=== PATIENT | female | born 1965 | race Two or more races ===

== ENCOUNTER → 2024-02-27 | Outpatient (CLI) | payer OTHER, SELFPAY ==
--- NOTE | 2024-02-27 14:15 | XR_ITS ---
Examination: Breast ultrasound complete, bilateral Date and time of exam: February 27, 2024 1418 hours INDICATIONS: Mammogram February 14, 2000 2420 11 m mass inner left breast Technique: Real-time grayscale ultrasonographic imaging bilateral breasts, including all 4 quadrants as well as nipple retroareolar and axillary regions. Findings: Sonographic images right breast No cystic or solid mass Sonographic images left breast 9:00 irregular mass 2.3 x 1.6 x 2.6 cm IMPRESSION: BI-RADS Category 4: Suspicious for malignancy Suspicious mass 9:00 position left breast, biopsy is needed to exclude breast carcinoma This mass is amenable to ultrasound-guided breast biopsy for diagnosis
== END | disposition home or self-care (01) ==
LOC: CDIM 13:58
PROVIDERS: PCP Family Medicine; Referring Provider Specialist; Visit Provider Specialist
DX: N63.25 Unspecified lump in the left breast, overlapping quadrants (principal)
CPT/HCPCS: 76641

== ENCOUNTER → 2024-05-07 | Outpatient (CLI) | payer OTHER, SELFPAY ==
[2024-05-06 09:02] LABS: Basophils % (Auto) 0 % (0-2.5); Eosinophils # (Auto) 0.2 Thou/mm3 (0.0-0.5); Eosinophils % (Auto) 2 % (0-10); Hematocrit 40.1 % (36.0-46.0); Immature Granulocytes % (Auto) 0 % (0-0); Immature Granulocytes Auto 0.03 Thou/mm3 (0.00-0.00); Lymphocytes # (Auto) 2.3 Thou/mm3 (1.0-4.8); Lymphocytes % (Auto) 23 % (10-50); Mean Corpuscular HGB Conc 32.4 g/dl (31.0-37.0); Mean Corpuscular Hemoglobin 29.9 pg (25.0-35.0); Mean Corpuscular Volume 92 fL (80-100); Monocytes # (Auto) 0.7 Thou/mm3 (0.0-0.8); Monocytes % (Auto) 7 % (0-12); Neutrophils # (Auto) 6.9 Thou/mm3 (1.8-7.7); Neutrophils % (Auto) 68 % (37-80); Nucleated Red Blood Cell % 0 /100 WBC (0); Platelet Count 298 Thou/mm3 (140-440); Red Blood Count 4.35 Miln/mm3 (4.00-5.20); White Blood Count 10.2 Thou/mm3 (3.6-11.0)
[2024-05-06 09:07] LABS: Partial Thromboplastin Time 31.1 Seconds (22.0-36.0)
--- NOTE | 2024-05-07 10:30 | XR_ITS ---
Examinations: Ultrasound-guided percutaneous breast biopsy, left breast 9:00 nodule Left breast sonography limited. Exam date and time: May 07, 2023 1105 hours INDICATIONS: Left breast sonogram February 27, 2024 BI-RADS 4 suspicious mass 9:00 position left breast. Informed consent provided. Technique: A timeout was completed verifying correct patient, procedure, site, positioning, and special equipment if applicable Informed consent provided. The patient was placed in a supine position for the breast biopsy. Sonographic images of the breast were performed for localization of the suspicious nodule The patient's breast was prepped and draped in sterile fashion. Maximum sterile barrier technique, hand hygiene, ultrasound sterile technique 1% lidocaine was used to anesthetize the skin and breast adjacent to the suspicious nodule. Utilizing ultrasonographic guidance, 8 core biopsies were obtained of the suspicious nodule utilizing an 18-gauge BioPince needle. The specimens appears satisfactory. US guided breast biopsy marker placement. Estimated blood loss 3 cc. The patient tolerated the procedure well and there were no complications. Impression: Successful ultrasound-guided percutaneous breast biopsy, 9:00 nodule. Ultrasound guided breast biopsy marker placement.
== END | disposition home or self-care (01) ==
LOC: SDIM 10:10 → SIRX 10:59
PROVIDERS: Radiology Diagnostic Radiology; Referring Provider Specialist; Visit Provider Specialist
DX: C50.812 Malignant neoplasm of overlapping sites of left female breast (principal); Z01.812 Encounter for preprocedural laboratory examination
CPT/HCPCS: 19083; 36415; 85025; 85610; 85730; A4648

== ENCOUNTER → 2024-05-28 | Outpatient (CLI) | payer OTHER, SELFPAY ==
--- NOTE | 2024-05-28 13:30 | ECHO_ITS ---
Transthoracic Echo Report Ht (in): 65 Wt (lb): 206 Exam Location: Echo Lab Status: Outpatient Residential Roofer: ZULMA Hansen^^^^ Indications: Procedure Performed: BP: 114 / 69 HR: 70 Rhythm: Sinus Technical Quality: Good MEASUREMENTS (Male / Female) Normal Values 2D ECHO LV Diastolic Diameter PLAX 4.7 cm 4.2 - 5.9 / 3.9 - 5.3 cm LV Systolic Diameter PLAX 3.0 cm IVS Diastolic Thickness 0.8 cm 0.6 - 1.0 / 0.6 - 0.9 cm LVPW Diastolic Thickness 0.8 cm 0.6 - 1.0 / 0.6 - 0.9 cm LV Relative Wall Thickness 0.3 LVOT Diameter 1.8 cm Aortic Root Diameter 3.2 cm LA Systolic Diameter LX 2.9 cm 3.0 - 4.0 / 2.7 - 3.8 cm LV Ejection Fraction MOD 4C 63.3 % LV Cardiac Index MOD 4C 2185.2 cm?/min?m? LV Ejection Fraction 4C AL 64.2 % LV Cardiac Index 4C AL 2308.0 cm?/min?m? LA Volume Index 22.7 cm?/m? 16 - 28 cm?/m? Ascending Aorta Diameter 3.6 cm DOPPLER AV Peak Velocity 123.0 cm/s AV Peak Gradient 6.1 mmHg AV Mean Gradient 4.0 mmHg AV Velocity Time Integral 26.1 cm AI Peak Velocity 266.5 cm/s AI Peak Gradient 28.4 mmHg AI Pressure Half Time 647.0 ms LVOT Peak Velocity 87.6 cm/s LVOT Peak Gradient 3.1 mmHg LVOT Velocity Time Integral 23.5 cm LVOT Cardiac Index 1990.1 cm?/min?m? AV Area Cont Eq vti 2.3 cm? AV Area Cont Eq pk 1.8 cm? MV Area PHT 3.2 cm? MR Peak Velocity 518.0 cm/s MR Peak Gradient 107.3 mmHg Mitral E Point Velocity 62.6 cm/s Mitral A Point Velocity 93.6 cm/s Mitral E to A Ratio 0.7 LV E' Lateral Velocity 9.4 cm/s Mitral E to LV E' Lateral Ratio 6.7 LV E' Septal Velocity 9.0 cm/s Mitral E to LV E' Septal Ratio 6.9 TR Peak Velocity 231.7 cm/s TR Peak Gradient 21.5 mmHg PV Peak Velocity 87.5 cm/s PV Peak Gradient 3.1 mmHg RVOT Peak Velocity 53.9 cm/s FINDINGS Left Ventricle Normal left ventricular size, wall thickness, systolic function with no obvious regional wall motion abnormalities. There is grade I diastolic dysfunction of the left ventricle (impaired relaxation pattern). The left ventricular ejection fraction is normal, estimated at 55-60%. Right Ventricle The right ventricle is normal in size and systolic function. The estimated right ventricular systolic pressure, 30 mmHg. Left Atrium The left atrium is normal by two-dimensional, color flow and Doppler imaging with no structural abnormalities, no thrombus formation present. Right Atrium The right atrium is normal by two-dimensional imaging, color flow and Doppler imaging with no structural abnormalities, no thrombus formation present. Atrial Septum The interatrial septum appears normal with no evidence of a shunt. Aorta The aorta is normal by two-dimensional, color flow and Doppler interrogation. Mitral Valve Mitral annular calcification. Mild mitral regurgitation. Aortic Valve Trace to mild aortic valve regurgitation. Tricuspid Valve There is mild tricuspid valve regurgitation. Pulmonic Valve Trivial pulmonic valve regurgitation. Vessels The pulmonary artery appears normal. The inferior vena cava pulmonary and hepatic veins appear normal. Pericardium The pericardium is normal by two-dimensional imaging. There is no significant pericardial effusion. CONCLUSIONS The transthoracic study is normal by two-dimensional, color flow imaging and Doppler interrogation. Normal left ventricular size and function. Approximate ejection fraction is 60%. Mild mitral and trace tricuspid regurgitation . No wall motion abnormalities seen Radha Villanueva (Electronically Signed) Final Date: 29 May 2024 10:15
== END | disposition home or self-care (01) ==
PROVIDERS: PCP Family Medicine; Referring Provider Surgery; Visit Provider Surgery
DX: I08.1 Rheumatic disorders of both mitral and tricuspid valves (principal); C50.912 Malignant neoplasm of unspecified site of left female breast
CPT/HCPCS: 93306

== ENCOUNTER 2024-06-04 13:01 | Outpatient (RCR) | payer OTHER, SELFPAY ==
--- NOTE | 2024-05-28 10:25 | CTCCONSULT_ITS ---
Patient: JIHAN SOOD : 1965 MR#: [id number] Page 2 of 2 CONSULTATION NOTE DATE OF CONSULTATION: 05/28/2024 NAME: JIHAN SOOD ACCOUNT: [id number] : 1965 AGE: 58 REFERRING PHYSICIAN: Carroll Christensen MD PRIMARY PHYSICIAN: Gamaliel Sparrow MD REASON FOR VISIT: New patient for breast cancer ONCOLOGY HISTORY: DIAGNOSIS: Neoplasm of unspecified behavior of breast [ICD10] D49.3 DATE OF DIAGNOSIS: STAGE/TNM: HER2 positive breast cancer TREATMENT HISTORY: Care?Plan Start?Date Cycle Day Intent Taxotere,?Carboplatin,?Trastuzumab?1 05/28/2024 1 21 Curative?(primary) HISTORY OF PRESENT ILLNESS: 58-year-old female OTHER MEDICAL HISTORY/CONDITIONS: LEFT BREAST CANCER MIGRAINE HEADACHES ANXIETY GASTRITIS OSTEOARTHRITIS RIGHT KNEE BREAST BIOPSY (03/2024) C SECTIONS X2 (1989,1994) CHOLECYSTECTOMY TOTAL KNEE REPLACEMENT RIGHT 2023 FAMILY HISTORY: Father: UNSURE TYPE OF CANCER PROSTATE OR PANCREAS Mother:?OVARIAN?CANCER?DX?90S Sibling: SISTER HAD OVARIAN CANCER DX 55 Children:?DENIES Cancer?History:?LEFT?BREAST?CANCER SOCIAL HISTORY: 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 Tobacco?Use:?NEVER ETOH?Use:?OCCASIONAL?WINE Drug?Note:?DENIES Social History Note:?LIVES WITH CHILDREN AND GRANDSON MICA LAYER HISTORY: Menarche?-?Age:?13 Hormone?Use:?ADMITS?BC?PILLS?IN?PAST :?3 Live?Births:?2 Age?1st?:?24 Gynecological?Note:?LAST MENSES IN 2004, 1 MISCARRIAGE Gynecological?Note?2:?LAST PAP SMEAR LAST YEAR MEDICATIONS: 1. nortriptyline - 25 mg 1 Capsule Daily Medications Last Reconciled by Darline Blackwell MD on 05/28/2024 ALLERGIES: Penicillin V; FISH REVIEW OF SYSTEMS: A complete 14-point review of systems was performed and is negative except as noted in interval history. PHYSICAL EXAMINATION: VITAL SIGNS: Temperature?98.4, B/P?127/82, Height?65?inches, Oxygen?Saturation?95% Weight?206?lbs PAIN: 0 - No pain ECOG Performance Status: 0 - Asymptomatic and fully active GENERAL APPEARANCE: Appears well, in no apparent distress, appropriately interactive. HEENT: Normocephalic, no temporal wasting, normal conjunctiva, no scleral icterus, normal hearing, lips without lesions, neck normal range of motion. CARDIOVASCULAR: Not assessed. PULMONARY: Normal respiratory effort, no respiratory distress or use of accessory muscles, speaking in full sentences, no tachypnea. EXTREMITIES: No pedal edema or cyanosis. SKIN: Normal skin appearance. NEUROLOGIC: Alert and oriented x4. PSHYCHIATRIC: Appropriate affect, mood normal, behavior normal, intact thought and speech. 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 I spent a total of 50 minutes on this patient?s care on the day of their visit excluding time spent related to any billed procedures. This time includes time spent with the patient as well as time spent documenting in the medical record, reviewing patients records and tests, obtaining history, placing orders, communicating with other healthcare professionals, counseling the patient, family or caregiver, and/or care coordination for the diagnoses above. Electronically Signed by: Gamaliel Sparrow MD T: 10:23 AM CC: Carroll?Fermin,? PCP: Gamaliel Sparrow Referring: Carroll Christensen This document was completed utilizing speech recognition software. Grammatical errors, random word insertions, pronoun errors, and incomplete sentences are an occasional consequence of this system due to software limitations, ambient noise, and hardware issues. Any formal questions or concerns about the content, text or information contained within the body of this dictation should be directly addressed to the provider for clarification.
== END 2024-06-05 23:59 | disposition home or self-care (01) ==
LOC: SCTC 13:01
PROVIDERS: PCP Family Medicine; Referring Provider Specialist; Visit Provider Internal Medicine Hematology & Oncology
DX: C50.812 Malignant neoplasm of overlapping sites of left female breast (principal); Z17.1 Estrogen receptor negative status [ER-]; Z17.22 Progesterone receptor negative status; Z17.31 Human epidermal growth factor receptor 2 positive status
CPT/HCPCS: 99213; G0463

== ENCOUNTER 2024-06-05 05:50 | Day surgery (SDC) | payer OTHER, SELFPAY ==
[2024-06-04 08:02] VITALS: BMI 35.4
[2024-06-04 08:44] LABS: Basophils # (Auto) 0.1 Thou/mm3 (0.0-0.2); Basophils % (Auto) 1 % (0-2.5); Eosinophils # (Auto) 0.2 Thou/mm3 (0.0-0.5); Eosinophils % (Auto) 3 % (0-10); Hematocrit 38.9 % (36.0-46.0); Hemoglobin 12.9 g/dL (12.0-16.0); Immature Granulocytes % (Auto) 0 % (0-0); Immature Granulocytes Auto 0.01 Thou/mm3 (0.00-0.00); Lymphocytes # (Auto) 2.3 Thou/mm3 (1.0-4.8); Lymphocytes % (Auto) 35 % (10-50); Mean Corpuscular HGB Conc 33.2 g/dl (31.0-37.0); Mean Corpuscular Hemoglobin 30.6 pg (25.0-35.0); Mean Corpuscular Volume 92 fL (80-100); Monocytes # (Auto) 0.6 Thou/mm3 (0.0-0.8); Monocytes % (Auto) 9 % (0-12); Neutrophils # (Auto) 3.4 Thou/mm3 (1.8-7.7); Neutrophils % (Auto) 52 % (37-80); Nucleated Red Blood Cell % 0 /100 WBC (0); Platelet Count 252 Thou/mm3 (140-440); Red Blood Count 4.22 Miln/mm3 (4.00-5.20); White Blood Count 6.6 Thou/mm3 (3.6-11.0)
[2024-06-04 09:00] LABS: Alanine Aminotransferase 12 U/L (10-49); Albumin, Serum 4.4 gm/dL (3.5-5.0); Albumin/Globulin Ratio 1.5 (1.2-2.2); Alkaline Phosphatase 133 U/L (46-116); Anion Gap 7 (7-16); Aspartate Amino Transferase 17 U/L (0-34); BUN/Creatinine Ratio 26 Ratio (12-20); Bilirubin,Total 0.3 mg/dL (0.3-1.2); Blood Urea Nitrogen 21 mg/dL (9-23); Calcium 9.2 mg/dL (8.3-10.6); Calcium (Corrected) 9.2 mg/dL (8.5-10.1); Carbon Dioxide 27.4 mMol/L (20.0-31.0); Chloride 107 mMol/L (98-107); Creatinine (Component) 0.8 mg/dL (0.6-1.3); Estimated Creatinine Clearance 87.1 mL/min (>60); Glucose 95 mg/dL (74-106); Osmolality,Calculated 284 (275-295); Potassium 3.9 mMol/L (3.4-5.1); Sodium 141 mMol/L (136-145); Total Protein 7.4 gm/dL (5.7-8.2); eGFR > 60 See Note
[2024-06-04 09:17] LABS: Partial Thromboplastin Time 31.2 Seconds (22.0-36.0); Prothrombin Time 11.3 Seconds (9.0-12.2)
[2024-06-05] VITALS (7 sets, daily range): BP systolic 102–120; BP diastolic 51–63; PULSE 69–83; RESP 12–20; TEMP 36.2–36.7; O2SAT 96–100; BMI 34.9
[2024-06-05] MEDS: RINGERS LACTATED 1000 ML 1,000 ML 20 ML IV (06:37)
--- NOTE | 2024-06-05 07:40 | CHAP ---
Patient expressed gratitude for prayer before their procedure.
--- NOTE | 2024-06-05 09:00 | XR_ITS ---
Examination: AP chest single view Technique one AP portable supine chest single view Exam date and time: May 28, 2024 0946 hrs. Indications: Port-A-Cath insertion Findings: Right subclavian Port-A-Cath tip right atrium Moderate vascular congestion Impression: Right subclavian Port-A-Cath tip right atrium
--- NOTE | 2024-06-05 10:28 | SUR.PHASEI ---
pt received from OR in recovery bay 2. pt asleep but responds to voice, breathing unlabored on oxymask 6l. v/s stable. pt dressing to right upper chest cdi. report received from Princess HACKETT and Tomas FALL.
--- NOTE | 2024-06-05 10:35 | ESOP_ITS ---
Date of Procedure 06/05/24 Pre Op Diagnosis Carcinoma of the breast on the left side requiring chemotherapy Stricture of veins Post Op Diagnosis Same Procedure Insertion of a Port-A-Cath using ultrasound guidance Findings Patient had a patent right subclavian vein which was used for access Procedure Description After the patient was brought to the operating room he was placed in supine position. Site-Rite ultrasound was used to identify the right subclavian vein and I chose this for insertion of the Port-A-Cath. After the patient's chest and neck were prepped with chloreprep solution and draped I used a mini stick to get into the right subclavian vein. Then I passed a small guidewire measuring 0.018 inch in diameter into the vein. Then this was switched over to a catheter to accommodate larger guidewire measuring 0.035 inches in diameter which was basically a J-wire. Then I used a 9 Slovak valved vessel dilator over the jesusita dewire which was then pulled out. Then I introduced a 8 Slovak polyurethane catheter from the [employer] and positioned it on the distal part of the superior vena cava. An x-ray was obtained to confirm the position of the tip. Then I made a small pocket 5 cm's below the entry site on the left chest below the clavicle to accommodate the port after injecting local anesthesia with 1% Xylocaine. Then I tunneled the polyurethane catheter from the entry site to this pocket in the chest wall and I connected it to regular port port from [employer] called profuse with the a catheter lock. Excellent blood return was obtained at the end of the procedure and this was flushed with heparinized saline. Then the port was attached to the chest wall muscle using 0 Vicryl sutures. Subcutaneous tissues was closed with 3-0 chromic and the skin by 4-0 Monocryl subcu stitches. Dressing was applied with Adaptic and 4 x 4 and the patient tolerated the procedure well and left operating room in stable condition. Anesthesia other (General LMA) Pathology / specimen None Estimated Blood Loss 10 Surgeon Parish Elizabeth MD Surgical Staff Operation Date: 06/05/24 09:00 Case Staff FIELD ARTILLERY TARGETING TECHNICIAN: Tomas Wheeler
--- NOTE | 2024-06-05 11:06 | SUR.PHASEI ---
pt able to tolerate oral fluids without difficulty swallowing or nasuea/vomiting.
--- NOTE | 2024-06-05 11:42 | SUR.PHASEII ---
pt awake and alert, breathing unlabored on room air. v/s stable. pt dressing to right upper chest cdi. pt able to ambulate to wheelchair with steady gait. d/c instructions given with anny Garcia in room, all questions answered. pt d/c via wheelchair with all belongings.
== END 2024-06-05 11:42 | disposition home or self-care (01) ==
PROVIDERS: PCP Family Medicine; Referring Provider Surgery; Visit Provider Surgery
PROC: (CPT 36561; principal; 2024-06-05 09:00)
DX: C50.912 Malignant neoplasm of unspecified site of left female breast (principal); I87.1 Compression of vein
CPT/HCPCS: 36561; 36415; 71046; 80053; 85025; 85610; 85730; A4217; A4649; C1788; C1894; J0131; J1643; J2405; J2704; J2765; J3010; J7120

== ENCOUNTER → 2024-06-19 | Outpatient (CLI) | payer OTHER, SELFPAY ==
--- NOTE | 2024-06-19 08:30 | XR_ITS ---
Examination: Breast ultrasound, unilateral, left complete Date and time of exam: June 19, 2024, 0846 hrs. Indications: Left breast sonogram 02/27/2024 suspicious mass 9:00 position left breast, 23 x 26 mm, biopsy May 07, 2024 Technique: Real-time watson scale ultrasonographic imaging performed left breast including all 4 quadrants as well as nipple retroareolar and axillary region. Findings: 10:00 cyst 6 x 4 mm 9:00 oval mass spiculated margins with breast biopsy marker 2.8 x 1.7 x 2.5 cm Impression: BI-RADS Category 4: Suspicious for malignancy 9:00 mass with spiculated margins 2.8 x 1.7 x 2.5 cm
--- NOTE | 2024-06-19 08:36 | XR_ITS ---
Examination: Diagnostic digital mammography, unilateral, left Computer aided detection 3-D breast Tomosynthesis, unilateral Date and time of exam: 06/19/2024, 8:46 AM Comparison: October 2017 through February 2024 Indications: recent biopsy proven left breast cancer: Technique: Nonmagnified MLO, CC views of the left breast have been obtained, reconstructed from 3-D Tomosynthesis images. R2 computer aided detection program utilized for evaluation of suspicious masses and/or abnormal calcifications. 3-D Tomosynthesis images obtained. Technologist: Findings: The breast is heterogeneously dense, which may obscure small masses. 3.0 cm irregular mass with indistinct borders in the medial left breast shows interval increase in size with increased pleomorphic calcifications. Interval placement of postbiopsy marker clip. Otherwise, no evidence of abnormal masses or suspicious calcifications. Impression: Interval growth of medial breast mass at site of biopsy-proven invasive ductal carcinoma. Surgical consult/surgical excision recommended. BI-RADS category 6: Known biopsy proven malignancy
== END | disposition home or self-care (01) ==
LOC: CDIM 08:14
PROVIDERS: PCP Family Medicine; Referring Provider Internal Medicine Hematology & Oncology; Visit Provider Internal Medicine Hematology & Oncology
DX: R92.342 Mammographic extreme density, left breast (principal); N63.20 Unspecified lump in the left breast, unspecified quadrant; N63.25 Unspecified lump in the left breast, overlapping quadrants
CPT/HCPCS: 76641; 77061; 77065; G0279

== ENCOUNTER 2024-07-03 08:48 | Outpatient (RCR) | payer OTHER, SELFPAY ==
[2024-06-10 16:40] LABS: Basophils % (Auto) 0 % (0-2.5); Eosinophils % (Auto) 0 % (0-10); Hematocrit 38.3 % (36.0-46.0); Hemoglobin 12.7 g/dL (12.0-16.0); Immature Granulocytes % (Auto) 0 % (0-0); Immature Granulocytes Auto 0.03 Thou/mm3 (0.00-0.00); Lymphocytes # (Auto) 0.7 Thou/mm3 (1.0-4.8); Lymphocytes % (Auto) 11 % (10-50); Mean Corpuscular HGB Conc 33.2 g/dl (31.0-37.0); Mean Corpuscular Hemoglobin 29.9 pg (25.0-35.0); Mean Corpuscular Volume 90 fL (80-100); Monocytes % (Auto) 0 % (0-12); Neutrophils # (Auto) 5.9 Thou/mm3 (1.8-7.7); Neutrophils % (Auto) 88 % (37-80); Nucleated Red Blood Cell % 0 /100 WBC (0); Platelet Count 251 Thou/mm3 (140-440); RDW Standard Deviation 40.9 fL (36.4-46.3); Red Blood Count 4.25 Miln/mm3 (4.00-5.20); White Blood Count 6.7 Thou/mm3 (3.6-11.0)
[2024-06-10 17:08] LABS: Carcinoembryonic Antigen 1.4 ng/mL (0.0-5.0)
[2024-06-10 17:09] LABS: Alanine Aminotransferase 14 U/L (10-49); Albumin, Serum 4.2 gm/dL (3.5-5.0); Albumin/Globulin Ratio 1.4 (1.2-2.2); Alkaline Phosphatase 127 U/L (46-116); Anion Gap 10 (7-16); Aspartate Amino Transferase 15 U/L (0-34); BUN/Creatinine Ratio 16 Ratio (12-20); Bilirubin,Total 0.3 mg/dL (0.3-1.2); Blood Urea Nitrogen 13 mg/dL (9-23); Calcium 9.3 mg/dL (8.3-10.6); Calcium (Corrected) 9.3 mg/dL (8.5-10.1); Carbon Dioxide 22.7 mMol/L (20.0-31.0); Chloride 108 mMol/L (98-107); Creatinine (Component) 0.8 mg/dL (0.6-1.3); Glucose 220 mg/dL (74-106); Osmolality,Calculated 288 (275-295); Sodium 141 mMol/L (136-145); Total Protein 7.2 gm/dL (5.7-8.2); eGFR > 60 See Note
[2024-06-16 06:39] LABS: CA 27.29* 21 U/mL (LESS THAN 38)
[2024-07-01 16:03] LABS: Basophils # (Auto) 0.1 Thou/mm3 (0.0-0.2); Basophils % (Auto) 1 % (0-2.5); Eosinophils # (Auto) 0.1 Thou/mm3 (0.0-0.5); Eosinophils % (Auto) 1 % (0-10); Hematocrit 35.3 % (36.0-46.0); Hemoglobin 11.9 g/dL (12.0-16.0); Immature Granulocytes % (Auto) 0 % (0-0); Immature Granulocytes Auto 0.02 Thou/mm3 (0.00-0.00); Lymphocytes # (Auto) 1.5 Thou/mm3 (1.0-4.8); Lymphocytes % (Auto) 23 % (10-50); Mean Corpuscular HGB Conc 33.7 g/dl (31.0-37.0); Mean Corpuscular Hemoglobin 30.4 pg (25.0-35.0); Mean Corpuscular Volume 90 fL (80-100); Monocytes # (Auto) 0.7 Thou/mm3 (0.0-0.8); Monocytes % (Auto) 11 % (0-12); Neutrophils # (Auto) 4.2 Thou/mm3 (1.8-7.7); Neutrophils % (Auto) 64 % (37-80); Nucleated Red Blood Cell % 0 /100 WBC (0); Platelet Count 352 Thou/mm3 (140-440); RDW Standard Deviation 43.8 fL (36.4-46.3); Red Blood Count 3.91 Miln/mm3 (4.00-5.20); White Blood Count 6.5 Thou/mm3 (3.6-11.0)
[2024-07-01 16:20] LABS: Alanine Aminotransferase 13 U/L (10-49); Albumin, Serum 4.1 gm/dL (3.5-5.0); Albumin/Globulin Ratio 1.5 (1.2-2.2); Alkaline Phosphatase 119 U/L (46-116); Anion Gap 12 (7-16); Aspartate Amino Transferase 16 U/L (0-34); BUN/Creatinine Ratio 16 Ratio (12-20); Bilirubin,Total 0.3 mg/dL (0.3-1.2); Blood Urea Nitrogen 13 mg/dL (9-23); Calcium 9.1 mg/dL (8.3-10.6); Calcium (Corrected) 9.1 mg/dL (8.5-10.1); Carbon Dioxide 21.4 mMol/L (20.0-31.0); Chloride 106 mMol/L (98-107); Creatinine (Component) 0.8 mg/dL (0.6-1.3); Globulin 2.7 gm/dL (2.3-3.5); Glucose 92 mg/dL (74-106); Osmolality,Calculated 277 (275-295); Potassium 3.7 mMol/L (3.4-5.1); Sodium 139 mMol/L (136-145); Total Protein 6.8 gm/dL (5.7-8.2); eGFR > 60 See Note
[2024-07-01 16:38] LABS: CA 15-3 17.6 U/mL (<32.4); Carcinoembryonic Antigen 1.6 ng/mL (0.0-5.0)
== END 2024-07-06 23:59 | disposition home or self-care (01) ==
LOC: SCTC 08:48
PROVIDERS: Internal Medicine Hematology & Oncology; PCP Family Medicine; Referring Provider Family Medicine; Visit Provider Nurse Practitioner Family
DX: Z51.11 Encounter for antineoplastic chemotherapy (principal); D49.3 Neoplasm of unspecified behavior of breast
CPT/HCPCS: 36591; 80053; 82378; 85025; 86300; 96367; 96372; 96375; 96413; 96415; 96417; A4216; J1100; J1200; J1453; J1642; J2405; J2506; J7040; J7050; J9045; J9171; Q5117

== ENCOUNTER 2024-07-24 09:17 | Outpatient (RCR) | payer OTHER, SELFPAY ==
--- NOTE | 2024-07-15 00:30 | CTCFLWUP_ITS ---
Patient: IJHAN SOOD : 1965 Page 4 of 5 FOLLOW UP NOTE DATE OF SERVICE: 07/09/2024 NAME: JIHAN SOOD ACCOUNT: [id number] : 1965 AGE: 58 INTERVAL HISTORY: Patient has received 2 cycles of chemotherapy and doing well. Patient states that she is unable to peel the mass anymore. ONCOLOGY HISTORY: DIAGNOSIS: Neoplasm of unspecified behavior of breast [ICD10] D49.3 DATE OF DIAGNOSIS: 05/07/2024 STAGE/TNM: HER2 positive breast cancer TREATMENT HISTORY: Care?Plan Start?Date Cycle Day Intent Taxotere,?Carboplatin,?Trastuzumab?1 06/11/2024 1 21 Curative?(primary) HISTORY OF PRESENT ILLNESS: 58-year-old female left breast invasive ductal carcinoma. Patient has an ultrasound-guided biopsy which showed invasive cancer in all the biopsies and patient is referred here for further care. 02/14/2024 mammogram showed 06/19/2024 mammogram showed Interval growth of medial breast mass at site of biopsy-proven invasive ductal carcinoma. Surgical consult/surgical excision recommendedoval mass spiculated margins with breast biopsy marker 2.8 x 1.7 x 2.5 c 06/11/2024 for cycle of chemotherapy started with the 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 Tobacco?Use:?NEVER ETOH?Use:?OCCASIONAL?WINE Drug?Note:?DENIES Social History Note:?LIVES WITH CHILDREN AND GRANDSON [employer] HISTORY: Menarche?-?Age:?13 Hormone?Use:?ADMITS?BC?PILLS?IN?PAST :?3 Live?Births:?2 Age?1st?:?24 Gynecological?Note:?LAST MENSES IN 2004, 1 MISCARRIAGE Gynecological?Note?2:?LAST PAP SMEAR LAST YEAR MEDICATIONS: 1. Compazine - 5 mg 1 tab Daily 2. dexamethasone - 8 mg Daily for 3 days 3. ondansetron - 8 mg 8 mg Daily Medications Last Reconciled by Erum Myles MA on 07/09/2024 ALLERGIES: Penicillin V; FISH REVIEW OF SYSTEMS: A complete 14-point review of systems was performed and is negative except as noted in interval history. PHYSICAL EXAMINATION: VITAL SIGNS: PAIN: 0 - No pain ECOG Performance Status: 0 - Asymptomatic and fully active GENERAL APPEARANCE: Appears well, in no apparent distress, appropriately interactive. HEENT: Normocephalic, no temporal wasting, normal conjunctiva, no scleral icterus, normal hearing, lips without lesions, neck normal range of motion. CARDIOVASCULAR: Not assessed. PULMONARY: Normal respiratory effort, no respiratory distress or use of accessory muscles, speaking in full sentences, no tachypnea. EXTREMITIES: No pedal edema or cyanosis. SKIN: Normal skin appearance. NEUROLOGIC: Alert and oriented x4. PSHYCHIATRIC: Appropriate affect, mood normal, behavior normal, intact thought and speech. Breast examination reveals about 6 x 4 cm mass in the left breast LABORATORY DATA: I have personally reviewed and interpreted each of the patient?s relevant lab tests, abnormal findings are below: Date 06/10/24 07/01/24 ??WHITE?BLOOD?COUNT?(Thou/mm3) 6.7 6.5 ??RED?BLOOD?COUNT?(Miln/mm3) 4.25 3.91?L ??HEMOGLOBIN?(gm/dl) 12.7 11.9?L ??HEMATOCRIT?(%) 38.3 35.3?L ??PLATELET?COUNT?(Thou/mm3) 251 352 ??NEUTROPHILS?%,?AUTO?(%) 88?H 64 ??LYMPH?%,?AUTO?(%) 11 23 ??NEUTROPHILS,?AUTO?(Thou/mm3) 5.9 4.2 ??GLUCOSE,RANDOM?(mg/dL) ? 92 ??BLOOD?UREA?NITROGEN?(mg/dL) ? 13 ??CREATININE?(mg/dL) ? 0.80 ??SODIUM?(mmol/L) ? 139 ??POTASSIUM?(mmol/L) ? 3.7 ??CHLORIDE?(mmol/L) ? 106 ??CrCl?(CandG)?(ml/min) ? 87.00 ??AST/SGOT?(Unit/L) ? 16 ??ALT/SGPT?(Unit/L) ? 13 ??ALKALINE?PHOSPHATASE?(Unit/L) ? 119?H ??BILIRUBIN,?TOTAL?(mg/dL) ? 0.3 ??PROTEIN?TOTAL?(gm/dl) ? 6.8 ??ALBUMIN,?SERUM?(gm/dl) ? 4.1 ??GLOBULIN?(gm/dl) ? 2.7 ??ALBUMIN/GLOBULIN?RATIO ? 1.5 ??CALCIUM,?SERUM?(mg/dL) ? 9.1 ??CALCIUM?SERUM?(CORRECTED)?(mg/dL) ? 9.1 ??CEA?(O*)?(ng/ml) ? 1.6 ASSESSMENT/PLAN: Left breast cancer HER2 positive ER/CO negative Patient have a large lobulated mass in the left breast Completed 2 cycles with TCH Patient is tolerating treatment well Continue chemotherapy Surgery once chemo is complete Will refer to radiation and general surgery Continue chemotherapy ORDERS: Order # Description [id number] CBC + Comprehensive Metabolic Panel + CEA + CA 27.29 [id number] Lab Appointment RETURN TO CLINIC: 1 month BILLING AND COMPLIANCE: I reviewed external records from providers outside my specialty as summarized above. I spent a total of 50 minutes on this patient?s care on the day of their visit excluding time spent related to any billed procedures. This time includes time spent with the patient as well as time spent documenting in the medical record, reviewing patients records and tests, obtaining history, placing orders, communicating with other healthcare professionals, counseling the patient, family or caregiver, and/or care coordination for the diagnoses above. Electronically Signed by: {Object.Sanct_ID*PnP.NameFL@M}, {Object.Sanct_ID*PnP.Suffix@U} D: {Object.Sanct_Date} T: {Object.Sanct_Time} CC: Carroll?Fermin,? PCP: Herman Mancilla Referring: Herman Mancilla This document was completed utilizing speech recognition software. Grammatical errors, random word insertions, pronoun errors, and incomplete sentences are an occasional consequence of this system due to software limitations, ambient noise, and hardware issues. Any formal questions or concerns about the content, text or information contained within the body of this dictation should be directly addressed to the provider for clarification.
[2024-07-22 14:39] LABS: Basophils % (Auto) 0 % (0-2.5); Eosinophils % (Auto) 0 % (0-10); Hematocrit 34.5 % (36.0-46.0); Hemoglobin 11.7 g/dL (12.0-16.0); Immature Granulocytes % (Auto) 1 % (0-0); Immature Granulocytes Auto 0.04 Thou/mm3 (0.00-0.00); Lymphocytes # (Auto) 0.4 Thou/mm3 (1.0-4.8); Lymphocytes % (Auto) 5 % (10-50); Mean Corpuscular HGB Conc 33.9 g/dl (31.0-37.0); Mean Corpuscular Hemoglobin 31.1 pg (25.0-35.0); Mean Corpuscular Volume 92 fL (80-100); Monocytes # (Auto) 0.1 Thou/mm3 (0.0-0.8); Monocytes % (Auto) 1 % (0-12); Neutrophils # (Auto) 7.7 Thou/mm3 (1.8-7.7); Neutrophils % (Auto) 94 % (37-80); Nucleated Red Blood Cell % 0 /100 WBC (0); Platelet Count 222 Thou/mm3 (140-440); RDW Standard Deviation 49.2 fL (36.4-46.3); Red Blood Count 3.76 Miln/mm3 (4.00-5.20); White Blood Count 8.2 Thou/mm3 (3.6-11.0)
[2024-07-22 15:03] LABS: Alanine Aminotransferase 14 U/L (10-49); Albumin, Serum 4.2 gm/dL (3.5-5.0); Albumin/Globulin Ratio 1.6 (1.2-2.2); Alkaline Phosphatase 137 U/L (46-116); Anion Gap 10 (7-16); Aspartate Amino Transferase 17 U/L (0-34); BUN/Creatinine Ratio 14 Ratio (12-20); Bilirubin,Total 0.4 mg/dL (0.3-1.2); Blood Urea Nitrogen 13 mg/dL (9-23); Carbon Dioxide 23.3 mMol/L (20.0-31.0); Chloride 108 mMol/L (98-107); Creatinine (Component) 0.9 mg/dL (0.6-1.3); Globulin 2.7 gm/dL (2.3-3.5); Glucose 184 mg/dL (74-106); Osmolality,Calculated 286 (275-295); Potassium 3.9 mMol/L (3.4-5.1); Sodium 141 mMol/L (136-145); Total Protein 6.9 gm/dL (5.7-8.2); eGFR > 60 See Note
[2024-07-22 15:04] LABS: Carcinoembryonic Antigen 1.7 ng/mL (0.0-5.0)
[2024-07-29 06:25] LABS: CA 27.29* 28 U/mL (LESS THAN 38)
== END 2024-08-05 23:59 | disposition home or self-care (01) ==
LOC: SCTC 09:17
PROVIDERS: PCP Family Medicine; Referring Provider Family Medicine; Visit Provider Internal Medicine Hematology & Oncology
DX: Z51.11 Encounter for antineoplastic chemotherapy (principal); C50.812 Malignant neoplasm of overlapping sites of left female breast; Z17.31 Human epidermal growth factor receptor 2 positive status; Z17.1 Estrogen receptor negative status [ER-]; Z17.22 Progesterone receptor negative status
CPT/HCPCS: 36591; 80053; 82378; 85025; 86300; 96367; 96372; 96375; 96413; 96417; 99212; A4216; J1100; J1200; J1453; J1642; J2405; J2506; J7040; J7050; J9045; J9171; Q5117; G0463

== ENCOUNTER 2024-09-04 07:50 | Outpatient (RCR) | payer OTHER, SELFPAY ==
--- NOTE | 2024-08-11 11:25 | CTCCONSULT_ITS ---
[facility] [address] [place], [place] [address] Consultation Note Date: 08/11/2024 MR#: [id number] Name: JIHAN SOOD : 1965 Dx: C50.212 Malignant plasm of upper inner quadrant of left breast Attending physician. Carroll Christensen MD referring physician. Referring physician. Emil Sparrow MD Reason for consultation. Patient with left breast CA receptor negative HER2 positive receiving neoadjuvant chemotherapy History of Present Illness: Patient is a 59-year-old lady who had ultrasound 02/27/2024 showing BI-RADS 4 suspicious mass in the 9 o'clock position of the left breast. This was measured to be 23 x 26 mm. Pathology ultrasound-guided 05/07/2024 revealed invasive ductal carcinoma high-grade largest focus 0.7 cm. ER/CO negative HER2/quiana positive. Patient received neoadjuvant chemo under Dr. Sparrow's direction Taxotere carboplatin trastuzumab and reportedly will complete her cycles of chemo in a few days. Then to be referred for surgery and postop radiation. Past Medical History: History of migraine headaches gastritis osteoarthritis right knee C-sections cholecystectomy Meds. Nortriptyline Allergies to penicillin and fish Family history. 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 Denies smoking drinking Review of Systems: Physical Exam: Well appearing lady no acute distress General: HEENT: Atraumatic no cephalic extraocular intact no oral lesions no cervical or supraclavicular adenopathy CV: Palpable breast mass not felt in either breast or axillary area ABD: Soft no organomegaly or tenderness EXT: No cyanosis clubbing or edema Assessment:1. T2 sized left breast CA receptor negative HER2/quiana overexpressed completing neoadjuvant chemo Herceptin. 2. Being referred to general surgeon post chemo. 3. I will see her about possible need for radiation postop. Brief explanation made to patient regarding side effects course of treatment etc. 4. Thank you very much for allowing me to evaluate this patient. Cc: Carroll Christensen MD Electronically signed by: Marco Antonio Alcantara MD, DABR 08/11/2024 11:23 AM
[2024-08-12 09:14] LABS: Basophils # (Auto) 0.1 Thou/mm3 (0.0-0.2); Basophils % (Auto) 0 % (0-2.5); Eosinophils # (Auto) 0.1 Thou/mm3 (0.0-0.5); Eosinophils % (Auto) 1 % (0-10); Hematocrit 30.9 % (36.0-46.0); Hemoglobin 10.7 g/dL (12.0-16.0); Immature Granulocytes % (Auto) 0 % (0-0); Immature Granulocytes Auto 0.05 Thou/mm3 (0.00-0.00); Lymphocytes # (Auto) 1.8 Thou/mm3 (1.0-4.8); Lymphocytes % (Auto) 12 % (10-50); Mean Corpuscular HGB Conc 34.6 g/dl (31.0-37.0); Mean Corpuscular Hemoglobin 31.9 pg (25.0-35.0); Mean Corpuscular Volume 92 fL (80-100); Monocytes # (Auto) 1.7 Thou/mm3 (0.0-0.8); Monocytes % (Auto) 12 % (0-12); Neutrophils % (Auto) 75 % (37-80); Nucleated Red Blood Cell % 0 /100 WBC (0); Platelet Count 220 Thou/mm3 (140-440); RDW Standard Deviation 52.1 fL (36.4-46.3); Red Blood Count 3.35 Miln/mm3 (4.00-5.20); White Blood Count 14.7 Thou/mm3 (3.6-11.0)
[2024-08-12 09:32] LABS: Alanine Aminotransferase 11 U/L (10-49); Albumin, Serum 4.1 gm/dL (3.4-4.8); Albumin/Globulin Ratio 1.6 (1.2-2.2); Alkaline Phosphatase 121 U/L (46-116); Anion Gap 8 (7-16); Aspartate Amino Transferase 12 U/L (0-34); BUN/Creatinine Ratio 19 Ratio (12-20); Bilirubin,Total 0.3 mg/dL (0.3-1.2); Blood Urea Nitrogen 15 mg/dL (9-23); Calcium 8.4 mg/dL (8.3-10.6); Calcium (Corrected) 8.4 mg/dL (8.5-10.1); Carbon Dioxide 25.9 mMol/L (20.0-31.0); Chloride 109 mMol/L (98-107); Creatinine (Component) 0.8 mg/dL (0.6-1.3); Globulin 2.5 gm/dL (2.3-3.5); Glucose 126 mg/dL (74-106); Osmolality,Calculated 287 (275-295); Potassium 3.6 mMol/L (3.4-5.1); Sodium 143 mMol/L (136-145); Total Protein 6.6 gm/dL (5.7-8.2); eGFR > 60 See Note
[2024-08-12 09:35] LABS: Carcinoembryonic Antigen 1.5 ng/mL (0.0-5.0)
[2024-08-17 07:05] LABS: CA 27.29* 29 U/mL (LESS THAN 38)
[2024-09-02 15:08] LABS: Basophils % (Auto) 1 % (0-2.5); Eosinophils % (Auto) 0 % (0-10); Hematocrit 32.2 % (36.0-46.0); Hemoglobin 10.7 g/dL (12.0-16.0); Immature Granulocytes % (Auto) 0 % (0-0); Immature Granulocytes Auto 0.03 Thou/mm3 (0.00-0.00); Lymphocytes # (Auto) 0.9 Thou/mm3 (1.0-4.8); Lymphocytes % (Auto) 11 % (10-50); Mean Corpuscular HGB Conc 33.2 g/dl (31.0-37.0); Mean Corpuscular Hemoglobin 32.7 pg (25.0-35.0); Mean Corpuscular Volume 99 fL (80-100); Monocytes # (Auto) 0.2 Thou/mm3 (0.0-0.8); Monocytes % (Auto) 3 % (0-12); Neutrophils # (Auto) 7.2 Thou/mm3 (1.8-7.7); Neutrophils % (Auto) 85 % (37-80); Nucleated Red Blood Cell % 0 /100 WBC (0); Platelet Count 266 Thou/mm3 (140-440); RDW Standard Deviation 56.7 fL (36.4-46.3); Red Blood Count 3.27 Miln/mm3 (4.00-5.20); White Blood Count 8.4 Thou/mm3 (3.6-11.0)
[2024-09-02 15:25] LABS: Alanine Aminotransferase 11 U/L (10-49); Albumin/Globulin Ratio 1.8 (1.2-2.2); Alkaline Phosphatase 130 U/L (46-116); Anion Gap 13 (7-16); Aspartate Amino Transferase 18 U/L (0-34); BUN/Creatinine Ratio 19 Ratio (12-20); Bilirubin,Total 0.3 mg/dL (0.3-1.2); Blood Urea Nitrogen 15 mg/dL (9-23); Calcium 8.5 mg/dL (8.3-10.6); Calcium (Corrected) 8.5 mg/dL (8.5-10.1); Carbon Dioxide 22.6 mMol/L (20.0-31.0); Chloride 106 mMol/L (98-107); Creatinine (Component) 0.8 mg/dL (0.6-1.3); Globulin 2.2 gm/dL (2.3-3.5); Glucose 132 mg/dL (74-106); Osmolality,Calculated 285 (275-295); Potassium 3.8 mMol/L (3.4-5.1); Sodium 142 mMol/L (136-145); Total Protein 6.2 gm/dL (5.7-8.2); eGFR > 60 See Note
[2024-09-02 15:27] LABS: Carcinoembryonic Antigen 1.7 ng/mL (0.0-5.0)
[2024-09-08 06:33] LABS: CA 27.29* 38 U/mL (LESS THAN 38)
== END 2024-09-05 23:59 | disposition home or self-care (01) ==
LOC: SCTC 07:50
PROVIDERS: Internal Medicine Hematology & Oncology; PCP Family Medicine; Referring Provider Radiology Therapeutic Radiology; Visit Provider Radiology Therapeutic Radiology
DX: Z51.11 Encounter for antineoplastic chemotherapy (principal); C50.812 Malignant neoplasm of overlapping sites of left female breast; Z17.1 Estrogen receptor negative status [ER-]; Z17.22 Progesterone receptor negative status; Z17.31 Human epidermal growth factor receptor 2 positive status
CPT/HCPCS: 36591; 80053; 82378; 85025; 86300; 96367; 96372; 96375; 96413; 96417; 99213; A4216; J1100; J1200; J1453; J1642; J2405; J2506; J7040; J7050; J9045; J9171; Q5117; G0463

== ENCOUNTER → 2024-09-11 | Outpatient (CLI) | payer OTHER, SELFPAY ==
--- NOTE | 2024-09-11 14:30 | ECHO_ITS ---
Transthoracic Echo Report Ht (in): 65 Wt (lb): 211 Exam Location: Echo Lab Status: Preadmit Salad Chef: Juanita Danielle Indications: Procedure Performed: BP: / HR: Technical Quality: Adequate MEASUREMENTS (Male / Female) Normal Values 2D ECHO LV Diastolic Diameter PLAX 4.0 cm 4.2 - 5.9 / 3.9 - 5.3 cm LV Systolic Diameter PLAX 2.7 cm IVS Diastolic Thickness 0.8 cm 0.6 - 1.0 / 0.6 - 0.9 cm LVPW Diastolic Thickness 1.0 cm 0.6 - 1.0 / 0.6 - 0.9 cm LV Relative Wall Thickness 0.5 LVOT Diameter 2.3 cm LA Volume Index 26.6 cm?/m? 16 - 28 cm?/m? DOPPLER AV Peak Velocity 115.0 cm/s AV Peak Gradient 5.3 mmHg LVOT Peak Velocity 88.8 cm/s LVOT Peak Gradient 3.2 mmHg AV Area Cont Eq pk 3.2 cm? MV Area PHT 2.7 cm? Mitral E Point Velocity 38.3 cm/s Mitral A Point Velocity 83.9 cm/s Mitral E to A Ratio 0.5 LV E' Lateral Velocity 7.0 cm/s Mitral E to LV E' Lateral Ratio 5.5 LV E' Septal Velocity 7.0 cm/s Mitral E to LV E' Septal Ratio 5.5 TR Peak Velocity 210.0 cm/s TR Peak Gradient 17.6 mmHg PV Peak Velocity 99.0 cm/s PV Peak Gradient 3.9 mmHg FINDINGS Left Ventricle Normal left ventricular size, wall thickness, systolic function with no obvious regional wall motion abnormalities. Normal left ventricular diastolic filling pattern for age. The ejection fraction is visually estimated at 65 %. Right Ventricle The right ventricle is normal in size and systolic function. The estimated right ventricular systolic pressure, 10 mmHg. Left Atrium The left atrium is normal by two-dimensional, color flow and Doppler imaging with no structural abnormalities, no thrombus formation present. Right Atrium The right atrium is normal by two-dimensional imaging, color flow and Doppler imaging with no structural abnormalities, no thrombus formation present. Atrial Septum The interatrial septum appears normal with no evidence of a shunt. Aorta The aorta is normal by two-dimensional, color flow and Doppler interrogation. Mitral Valve The mitral valve is normal by two-dimensional, color flow and Doppler interrogation. There is no significant mitral valve regurgitation, stenosis or prolapse. Aortic Valve The aortic valve is trileaflet and normal by two-dimensional, color flow and Doppler interrogation. There is no significant aortic valve regurgitation. Tricuspid Valve The tricuspid valve is normal by two-dimensional, color flow and Doppler interrogation. There is no significant tricuspid valve regurgitation. Pulmonic Valve The pulmonic valve is not well visualized. There is no significant pulmonic valve regurgitation. Vessels The pulmonary artery appears normal. The inferior vena cava pulmonary and hepatic veins appear normal. Pericardium The pericardium is normal by two-dimensional imaging. There is no significant pericardial effusion. CONCLUSIONS Indication: Breast Cancer The transthoracic study is normal by two-dimensional, color flow imaging and Doppler interrogation. Normal left ventricular size and function. Approximate ejection fraction is 65%. No wall motion abnormalities noted. Radha Villanueva (Electronically Signed) Final Date: 14 September 2024 17:05
== END | disposition home or self-care (01) ==
LOC: SDIM 13:58
PROVIDERS: PCP Family Medicine; Referring Provider Internal Medicine Hematology & Oncology; Visit Provider Internal Medicine Hematology & Oncology
DX: D49.3 Neoplasm of unspecified behavior of breast (principal)
CPT/HCPCS: 73221; 93306

== ENCOUNTER 2024-09-25 07:47 | Outpatient (RCR) | payer OTHER, SELFPAY ==
--- NOTE | 2024-09-09 10:50 | CTCFLWUP_ITS ---
Patient: JIHAN SOOD : 1965 Page 2 of 2 FOLLOW UP NOTE DATE OF SERVICE: 09/08/2024 NAME: JIHAN SOOD ACCOUNT: [id number] : 1965 AGE: 59 INTERVAL HISTORY: Patient has received 4 cycles of chemotherapy and doing well. Patient states that she is unable to peel the mass anymore. She is doing well. ONCOLOGY HISTORY: DIAGNOSIS: Neoplasm of unspecified behavior of breast [ICD10] D49.3 DATE OF DIAGNOSIS: 05/07/2024 STAGE/TNM: HER2 positive breast cancer TREATMENT HISTORY: Care?Plan Start?Date Cycle Day Intent Taxotere,?Carboplatin,?Trastuzumab?1 06/11/2024 1 Curative?(primary) HISTORY OF PRESENT ILLNESS: 59-year-old female left breast invasive ductal carcinoma. Patient has an ultrasound-guided biopsy which showed invasive cancer in all the biopsies and patient is referred here for further care. 02/14/2024 mammogram showed 06/19/2024 mammogram showed Interval growth of medial breast mass at site of biopsy-proven invasive ductal carcinoma. Surgical consult/surgical excision recommendedoval mass spiculated margins with breast biopsy marker 2.8 x 1.7 x 2.5 c 06/11/2024 for cycle of chemotherapy started with the [facility] OTHER MEDICAL HISTORY/CONDITIONS: LEFT BREAST CANCER MIGRAINE HEADACHES ANXIETY GASTRITIS OSTEOARTHRITIS RIGHT KNEE BREAST BIOPSY (03/2024) C SECTIONS X2 (1989,1994) CHOLECYSTECTOMY TOTAL KNEE REPLACEMENT RIGHT 2023 FAMILY HISTORY: Father: UNSURE TYPE OF CANCER PROSTATE OR PANCREAS Mother:?OVARIAN?CANCER?DX?90S Sibling: SISTER HAD OVARIAN CANCER DX 55 Children:?DENIES Cancer?History:?LEFT?BREAST?CANCER SOCIAL HISTORY: 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 Compazine - 5 mg 1 tab Daily 2. dexamethasone - 8 mg Daily for 3 days 3. ondansetron - 8 mg 8 mg Daily 4. Protonix - 20 mg 1 tab Daily Medications Last Reconciled by Alpa Ramirez MA on 09/08/2024 ALLERGIES: Penicillin V; FISH REVIEW OF SYSTEMS: A complete 14-point review of systems was performed and is negative except as noted in interval history. PHYSICAL EXAMINATION: VITAL SIGNS: Temperature?98.8, B/P?117/75, Oxygen?Saturation?98% PAIN: 0 - No pain ECOG Performance Status: 0 - Asymptomatic and fully active GENERAL APPEARANCE: Appears well, in no apparent distress, appropriately interactive. HEENT: Normocephalic, no temporal wasting, normal conjunctiva, no scleral icterus, normal hearing, lips without lesions, neck normal range of motion. CARDIOVASCULAR: Not assessed. PULMONARY: Normal respiratory effort, no respiratory distress or use of accessory muscles, speaking in full sentences, no tachypnea. EXTREMITIES: No pedal edema or cyanosis. SKIN: Normal skin appearance. NEUROLOGIC: Alert and oriented x4. PSHYCHIATRIC: Appropriate affect, mood normal, behavior normal, intact thought and speech. Breast examination reveals no palpable mass anymore LABORATORY DATA: I have personally reviewed and interpreted each of the patient?s relevant lab tests, abnormal findings are below: Date 08/12/24 09/02/24 ??WHITE?BLOOD?COUNT?(Thou/mm3) 14.7?H 8.4 ??RED?BLOOD?COUNT?(Miln/mm3) 3.35?L 3.27?L ??HEMOGLOBIN?(gm/dl) 10.7?L 10.7?L ??HEMATOCRIT?(%) 30.9?L 32.2?L ??PLATELET?COUNT?(Thou/mm3) 220 266 ??NEUTROPHILS?%,?AUTO?(%) 75 85?H ??LYMPH?%,?AUTO?(%) 12 11 ??NEUTROPHILS,?AUTO?(Thou/mm3) 11.0?H 7.2 ??GLUCOSE,RANDOM?(mg/dL) ? 132?H ??BLOOD?UREA?NITROGEN?(mg/dL) ? 15 ??CREATININE?(mg/dL) ? 0.80 ??SODIUM?(mmol/L) ? 142 ??POTASSIUM?(mmol/L) ? 3.8 ??CHLORIDE?(mmol/L) ? 106 ??CrCl?(CandG)?(ml/min) ? 86.70 ??AST/SGOT?(Unit/L) ? 18 ??ALT/SGPT?(Unit/L) ? 11 ??ALKALINE?PHOSPHATASE?(Unit/L) ? 130?H ??BILIRUBIN,?TOTAL?(mg/dL) ? 0.3 ??PROTEIN?TOTAL?(gm/dl) ? 6.2 ??ALBUMIN,?SERUM?(gm/dl) ? 4.0 ??GLOBULIN?(gm/dl) ? 2.2?L ??ALBUMIN/GLOBULIN?RATIO ? 1.8 ??CALCIUM,?SERUM?(mg/dL) ? 8.5 ??CALCIUM?SERUM?(CORRECTED)?(mg/dL) ? 8.5 ??CEA?(O*)?(ng/ml) ? 1.7 ASSESSMENT/PLAN: Left breast cancer HER2 positive ER/UT negative Had a large lobulated mass in the left breast Completed 4 cycles of chemotherapy Patient is tolerating treatment well Continue chemotherapy Surgery once chemo is complete Continue chemotherapy ORDERS: Order # Description [id number] CBC + Comprehensive Metabolic Panel + CEA + CA 27.29 [id number] Lab Appointment RETURN TO CLINIC: BILLING AND COMPLIANCE: I reviewed external records from providers outside my specialty as summarized above. I spent a total of 50 minutes on this patient?s care on the day of their visit excluding time spent related to any billed procedures. This time includes time spent with the patient as well as time spent documenting in the medical record, reviewing patients records and tests, obtaining history, placing orders, communicating with other healthcare professionals, counseling the patient, family or caregiver, and/or care coordination for the diagnoses above. Electronically Signed by: Gamaliel Sparrow MD T: 10:47 AM CC: Carroll?Fermin? PCP: Gamaliel Sparrow Referring: Gamaliel Sparrow This document was completed utilizing speech recognition software. Grammatical errors, random word insertions, pronoun errors, and incomplete sentences are an occasional consequence of this system due to software limitations, ambient noise, and hardware issues. Any formal questions or concerns about the content, text or information contained within the body of this dictation should be directly addressed to the provider for clarification.
[2024-09-23 09:50] LABS: Basophils % (Auto) 0 % (0-2.5); Eosinophils % (Auto) 1 % (0-10); Hematocrit 32.1 % (36.0-46.0); Hemoglobin 10.8 g/dL (12.0-16.0); Immature Granulocytes % (Auto) 0 % (0-0); Immature Granulocytes Auto 0.01 Thou/mm3 (0.00-0.00); Immature Reticulocyte Fraction 17.1 % (3.0-15.9); Lymphocytes # (Auto) 0.9 Thou/mm3 (1.0-4.8); Lymphocytes % (Auto) 19 % (10-50); Mean Corpuscular HGB Conc 33.6 g/dl (31.0-37.0); Mean Corpuscular Volume 98 fL (80-100); Monocytes # (Auto) 0.3 Thou/mm3 (0.0-0.8); Monocytes % (Auto) 6 % (0-12); Neutrophils # (Auto) 3.5 Thou/mm3 (1.8-7.7); Neutrophils % (Auto) 74 % (37-80); Nucleated Red Blood Cell % 0 /100 WBC (0); Platelet Count 232 Thou/mm3 (140-440); RDW Standard Deviation 54.6 fL (36.4-46.3); Red Blood Count 3.27 Miln/mm3 (4.00-5.20); Reticulocyte Absolute Auto 96.2 Biln/L (25.0-75.0); White Blood Count 4.8 Thou/mm3 (3.6-11.0)
[2024-09-23 10:15] LABS: Ferritin 273 ng/mL (7.3-270.7); Iron 82 mcg/dL (50-170); Percent Iron Saturation 28 % (20-55); Total Iron Binding Capacity 286 mcg/dL (250-425); Unsaturated Iron Binding 204 (225-295)
[2024-09-23 10:16] LABS: Alanine Aminotransferase 14 U/L (10-49); Albumin/Globulin Ratio 1.8 (1.2-2.2); Alkaline Phosphatase 125 U/L (46-116); Anion Gap 10 (7-16); Aspartate Amino Transferase 18 U/L (0-34); BUN/Creatinine Ratio 20 Ratio (12-20); Bilirubin,Total 0.4 mg/dL (0.3-1.2); Blood Urea Nitrogen 16 mg/dL (9-23); Carbon Dioxide 25.5 mMol/L (20.0-31.0); Chloride 107 mMol/L (98-107); Creatinine (Component) 0.8 mg/dL (0.6-1.3); Folate 21.42 ng/mL (>5.38); Globulin 2.2 gm/dL (2.3-3.5); Glucose 150 mg/dL (74-106); LDH (Lactate Dehydrogenase) 237 U/L (120-246); Osmolality,Calculated 287 (275-295); Potassium 3.8 mMol/L (3.4-5.1); Sodium 142 mMol/L (136-145); Total Protein 6.2 gm/dL (5.7-8.2); Vitamin B12 > 2000 pg/mL (211-911); eGFR > 60 See Note
[2024-09-23 10:30] LABS: CA 15-3 14.3 U/mL (<32.4)
[2024-09-28 07:03] LABS: Haptoglobin* 123 mg/dL (43-212)
== END 2024-10-05 23:59 | disposition home or self-care (01) ==
LOC: SCTC 07:47
PROVIDERS: PCP Physician Assistant; Referring Provider Internal Medicine Hematology & Oncology; Visit Provider Internal Medicine Hematology & Oncology
DX: Z51.11 Encounter for antineoplastic chemotherapy (principal); C50.812 Malignant neoplasm of overlapping sites of left female breast; Z17.1 Estrogen receptor negative status [ER-]; Z17.22 Progesterone receptor negative status; Z17.31 Human epidermal growth factor receptor 2 positive status
CPT/HCPCS: 36591; 80053; 82607; 82728; 82746; 83010; 83540; 83550; 83615; 85025; 85046; 86300; 96367; 96372; 96413; 96415; 96417; 99212; A4216; J1100; J1453; J1642; J2405; J2506; J7040; J7050; J9045; J9171; Q5117; A9270; G0463

== ENCOUNTER → 2024-10-02 | Outpatient (CLI) | payer OTHER, SELFPAY ==
--- NOTE | 2024-10-02 11:30 | XR_ITS ---
Examination: Breast ultrasound, unilateral, left complete Date and time of exam: October 02, 2024 1125 hours INDICATIONS: Palpable lump inner left breast note is beginning 8 months ago, left breast biopsy with May 07, 2024 positive for carcinoma post chemotherapy August 24, 2024, mammogram June 19, 2024 interval growth the medial breast mass at site of biopsy, left breast sonogram June 19, 2024 BI-RADS 4 suspicious mass 9:00 position left breast spiculated margins 2.8 x 1.7 x 2.5 cm Technique: Real-time watson scale ultrasonographic imaging performed left breast including all 4 quadrants as well as nipple retroareolar and axillary region. Findings: 1:00 cyst 8 x 6 mm 9 o'clock nodule previously noted is not currently identified IMPRESSION: The 9 o'clock nodule is no longer identified
== END | disposition home or self-care (01) ==
PROVIDERS: PCP Family Medicine; Referring Provider Internal Medicine Hematology & Oncology; Visit Provider Internal Medicine Hematology & Oncology
DX: D49.3 Neoplasm of unspecified behavior of breast (principal)
CPT/HCPCS: 76641

== ENCOUNTER 2024-10-20 06:50 | Day surgery (SDC) | payer OTHER, SELFPAY ==
--- NOTE | 2024-10-19 10:15 | EKG_ITS ---
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
[2024-10-19 10:23] VITALS: BMI 36.3
[2024-10-19 10:57] LABS: Basophils # (Auto) 0.1 Thou/mm3 (0.0-0.2); Basophils % (Auto) 1 % (0-2.5); Eosinophils # (Auto) 0.1 Thou/mm3 (0.0-0.5); Eosinophils % (Auto) 3 % (0-10); Hematocrit 32.2 % (36.0-46.0); Hemoglobin 10.8 g/dL (12.0-16.0); Immature Granulocytes Auto 0.02 Thou/mm3 (0.00-0.00); Lymphocytes # (Auto) 2.1 Thou/mm3 (1.0-4.8); Lymphocytes % (Auto) 37 % (10-50); Mean Corpuscular HGB Conc 33.5 g/dl (31.0-37.0); Mean Corpuscular Hemoglobin 33.2 pg (25.0-35.0); Mean Corpuscular Volume 99 fL (80-100); Monocytes # (Auto) 0.7 Thou/mm3 (0.0-0.8); Monocytes % (Auto) 12 % (0-12); Neutrophils # (Auto) 2.6 Thou/mm3 (1.8-7.7); Neutrophils % (Auto) 47 % (37-80); Nucleated Red Blood Cell # 0.00 Thou/mm3 (0.00-0.00); Nucleated Red Blood Cell % 0 /100 WBC (0); Platelet Count 283 Thou/mm3 (140-440); RDW Standard Deviation 50.4 fL (36.4-46.3); Red Blood Count 3.25 Miln/mm3 (4.00-5.20); White Blood Count 5.6 Thou/mm3 (3.6-11.0)
[2024-10-19 11:08] LABS: Alanine Aminotransferase 11 U/L (10-49); Albumin, Serum 4.0 gm/dL (3.4-4.8); Albumin/Globulin Ratio 1.8 (1.2-2.2); Alkaline Phosphatase 119 U/L (46-116); Anion Gap 8 (7-16); Aspartate Amino Transferase 19 U/L (0-34); BUN/Creatinine Ratio 20 Ratio (12-20); Bilirubin,Total 0.3 mg/dL (0.3-1.2); Blood Urea Nitrogen 16 mg/dL (9-23); Calcium 9.0 mg/dL (8.3-10.6); Calcium (Corrected) 9.0 mg/dL (8.5-10.1); Carbon Dioxide 27.8 mMol/L (20.0-31.0); Chloride 109 mMol/L (98-107); Creatinine (Component) 0.8 mg/dL (0.6-1.3); Estimated Creatinine Clearance 84.1 mL/min (>60); Globulin 2.2 gm/dL (2.3-3.5); Glucose 103 mg/dL (74-106); Osmolality,Calculated 289 (275-295); Potassium 4.3 mMol/L (3.4-5.1); Sodium 145 mMol/L (136-145); Total Protein 6.2 gm/dL (5.7-8.2); eGFR > 60 See Note
[2024-10-19 11:22] LABS: INR 1.1 (0.9-1.3); Partial Thromboplastin Time 31.2 Seconds (22.0-36.0); Prothrombin Time 11.5 Seconds (9.0-12.2)
[2024-10-20] VITALS (9 sets, daily range): BP systolic 113–131; BP diastolic 64–81; PULSE 77–85; RESP 12–19; TEMP 36.3–36.6; O2SAT 95–98; BMI 36.1
--- NOTE | 2024-10-20 | XR_ITS ---
Examination: Mammogram breast tissues specimens x2 Date and time: October 20, 2024 1242 hours INDICATIONS: Postop surgical resection biopsy-positive lesion 9:00 position left breast Technique, findings: 2 mammographic specimens obtained These contain suspicious microcalcifications, however the breast biopsy marker is not in the specimens IMPRESSION: Specimens contained suspicious microcalcifications but not the breast biopsy marker
--- NOTE | 2024-10-20 07:20 | CHAP ---
Visited briefly with patient giving comfort, encouragement and prayer.
--- NOTE | 2024-10-20 09:00 | XR_ITS ---
Examination: Ultrasound-guided needle localization left breast 9:00 biopsy-positive lesion for carcinoma Ultrasound left breast Date and time: October 20, 2024 0938 hours INDICATIONS: Biopsy positive for carcinoma lesion 9:00 position left breast, preop needle localization for surgical resection today TECHNIQUE AND FINDINGS: Skin prepped over the left breast Informed consent provided Hand hygiene ultrasound sterile technique 1% lidocaine administered for local anesthesia Utilizing ultrasonographic guidance 5 cm Kopans needle placed within the lesion 9:00 position left breast 1 cc methylene blue introduced Hookwire introduced and needle withdrawn Estimated blood loss 1 cc IMPRESSION: Successful ultrasound-guided needle localization left breast 9:00 biopsy positive lesion for carcinoma
--- NOTE | 2024-10-20 09:00 | XR_ITS ---
Examination: Nuclear medicine lymph glands imaging [place] lymph node study Date and time: October 20, 2024 0900 hours INDICATIONS: Diagnosis malignant neoplasm left female breast, preop needle localization and lymph node dissection today FINDINGS: Informed consent provided. Timeout performed. Skin prepped over the breast and sterile drape applied hand hygiene 1% lidocaine administered for local anesthesia 2.2 mCi technetium 99m sulfur colloid introduced subareolar No imaging Estimated blood loss 0 cc IMPRESSION: Successful sentinel lymph node study as above
--- NOTE | 2024-10-20 13:27 | SUR.PHASEI ---
pt received from OR in recovery bay 1. pt asleep but responds to voice, breathing unlabored on oxymask 8l. v/s stable. pt dressing to left breast cdi, breast binder in place. report received from Sathish HAIR and Eliza HACKETT.
[2024-10-20] MEDS: ONDANSETRON INJ 2 MG/ML INJ 2 ML 4 MG IVP (13:42)
--- NOTE | 2024-10-20 13:43 | PD.SUROPNT ---
Date of Procedure 10/20/24 Pre Op Diagnosis Infiltrating ductal carcinoma of the left breast at 9 o'clock position Post Op Diagnosis Same Procedure Guidewire localization and partial mastectomy of the left t breast and sentinel node biopsy of the left axilla Findings Patient is found to have 1 sentinel node on the left axilla which was identified using neoprobe Procedure Description After the patient was sent to the x-ray suite ultrasound low colitis guidewire placement was done by Dr. Santos. Patient also had a sentinel node injection. Then she was brought to the operating room and given endotracheal anesthesia. Then the left breast and axilla were washed with ChloraPrep solution and draped in sterile manner. Timeout was performed. I approached the left axilla first. Using a neoprobe I identified some uptake in the left axilla. I made a 5 to 6 cm long incision in the left axilla and subcutaneous tissue was divided. Then 1 lymph node was removed which was radioactive. Further search revealed no additional lymph nodes. The wound was closed in 3-0 chromic sutures in layers and the skin was closed with 4-0 Monocryl subcuticular stitch. I injected local anesthesia before closed. Then attention was turned onto the left breast mass. This was located at 9 o'clock position and was localized by Dr. Santos using ultrasound guidance. I made a curved incision along the right breast and then dissected out the subcutaneous tissue. I was able to find the methylene blue stained tissues and I removed it along with the guidewire. The specimen radiograph showed that the guidewire was right at the center of the specimen. But unfortunately the the marker placed by the radiologist at the site of biopsy was not seen. Therefore I took an additional margin of tissues surrounding the previous excision to see for any marker. Even in the additional tissue no marker was seen but there were some calcifications. At this stage I do not know whether we have completely removed the lesion or the biopsied area. Radiology suggested that we will watch and do a mammogram to see if there is any marker in future mammogram. Therefore I closed the wound in layers using 3-0 chromic and then 4-0 Monocryl for subcuticular stitch. Then the dressing was applied with Adaptic and 4 x 4 gauze and compression with breast binder. Patient tolerated the procedure well and left operating room in stable condition. Anesthesia GETA Pathology / specimen Other (1. [place] node #2 cancer with guidewire localization #3 additional margins for the cancer) IVF Infused 800 Estimated Blood Loss 100 Surgeon Parish Elizabeth MD Surgical Staff Operation Date: 10/20/24 11:15 Case Staff Anesthesiologist: Maurizio Alves RN First Assistant: Juan F Lemus RN First Assistant: Domonique Hawkins
--- NOTE | 2024-10-20 15:08 | SUR.PHASEII ---
pt awake and alert, breathing unlabored on room air. v/s stable. pt dressing to left breast cdi. breast binder in place. pt able to ambulate to wheelchair with steady gait. d/c instructions given with anny Garcia in room, all questions answered. pt d/c via wheelchair with all belongings.
== END 2024-10-20 15:08 | disposition home or self-care (01) ==
PROVIDERS: PCP Family Medicine; Referring Provider Surgery; Visit Provider Surgery
PROC: (CPT 38500; principal; 2024-10-20 11:00)
DX: N60.22 Fibroadenosis of left breast (principal); Z01.810 Encounter for preprocedural cardiovascular examination; N61.0 Mastitis without abscess
CPT/HCPCS: 38500; 19301; 19285; 36415; 76098; 80053; 85025; 85610; 85730; 93005; A4217; A4648; A4649; A9541; J0131; J1100; J1885; J2405; J2704; J3010; J3490

== ENCOUNTER 2024-12-02 08:52 | Outpatient (RCR) | payer OTHER, MEDICAID, SELFPAY ==
--- NOTE | 2024-11-11 13:22 | CTCFLWUP_ITS ---
[facility] [address] [place], [place] [address] FOLLOW-UP NOTE Date: 11/11/2024 MR#: [id number] Name: JIHAN SOOD : 1965 Dx: C50.212 Malignant neoplasm left breast Identification. Patient with T2 sized receptor negative HER2/quiana overexpressed left breast CA completed neoadjuvant chemo and underwent left partial mastectomy and sentinel node removal on 10/20/[address] Marks. Final path revealed 1 benign sentinel lymph node and left partial mastectomy with benign fibrosis with no residual cancer noted.[id number]. There is some erythema at the partial mastectomy site but otherwise appears to be healing satisfactory. Spoke to patient about radiation therapy to residual left breast tissue. 15 fractions of 4000 cGy with possible E boost depending on the skin reaction. Patient will likely receive concurrent Herceptin when she sees Dr. Sparrow next week. Consent signed side effects explained. Cc: MD Herman Wooten MD Electronically signed by: Marco Antonio Alcantara M.D. 11/11/2024 1:20 PM
--- NOTE | 2024-11-11 13:23 | CTCTXPLN_ITS ---
[facility] [address] [place], [place] [address] Physician Clinical Treatment Planning Note Date of Service: 11/11/2024 Name: JIHAN BARRIE SimsB.: 1965 The patient has agreed to proceed with Radiation therapy. Tests and supporting medical records were interpreted to assist in defining the tumor location and extent of disease. Further imaging will be necessary to contour and delineate the volume to which the XRT will be provided. A. Treatment Intent: Curative B. Modality: Mixed C. Requested Technique: 3D D. Treatment Site: Left breast E. Critical structures to be contoured on plan: F. In order to accomplish this plan, I am ordering/Prescribing the followin. Simulations (s) will be performed to accomplish a reproducible treatment position, to determine optimal treatment portals/beam arrangements, to design beam modifying devices and verify treatment portals on patient prior to the commencement of Radiation Therapy. Left breast 2. Devices; for immobilization and beam shaping: Vac-Maya 3. CT Guidance for placement of XRT hanson Scan area: 4. Portal images Frequency: 5. Invivo transit dose measurement once per week on all VMAT patients. 6. Special Physics Consult Requested for: 7. Other requests: Special procedure chemoradiation G. Dose Objectives: Curative Electronically signed by: Marco Antonio Alcantara M.D. 11/11/2024 1:20 PM
--- NOTE | 2024-11-11 13:25 | CTCTXPLNST_ITS ---
Radiation Oncology Treatment Planning Sheet Name: JIHAN SOOD MR#: [id number] : 1965 Dx: D49.3 Neoplasm of unspecified behavior of breast Date of Service: 11/11/2024 Account #: ?? Pt Treatment Intent: curative palliative other: Stage: Procedure CPT # Ordered Spec. Procedure 44839 Chemoradiation 1 Flood Complex (set-up) 95071 Tangents E boost 2 Flood Simple 40906 1 IMRT Plan 63477 MLC Devices VMAT 52531 Flood 3 D 62342 1 TRTMT dev Complex 45750 Vac-Maya 2 tangents E boost 4 TRTMT dev simple 45073 1 Basic Miki 26901 5 Special Dosimetry 39271 Spec Physics 46563 Port Films 59027 3 SRS Cranial/1FX 36020 SBR 5 FX or Less /ex: 5 = 5 fx 16711 IMRT Simple 19224 IMRT Complex 60801 IGRT 65542 Rad del com 6-10 65591 Rad del com 11- 32871 4990 20 Cont Med Physics 65990 4 Treatment Planning 73747 1 Rad del com 20 mev 28986 Rad del inter 09-15 23316 Rad del inter 02-24 80323 Rad del simple 6-10 70191 Rad del simple 02-24 20518 Special Port Plan 35763 TRTMT dev inter 72718 Isodose Complex 98266 Isodose simple 05602 Resp Motion Mgmt Simulation 08717 Placement of Fiducial Markers 11570 Electronically Signed By: Marco Antonio Alcantara MD, SNEHA 11/11/2024 1:22 PM
--- NOTE | 2024-11-18 14:10 | CTCFLWUP_ITS ---
Patient: JIHAN SOOD : 1965 Page 3 of 5 FOLLOW UP NOTE DATE OF SERVICE: 11/18/2024 NAME: JIHAN SOOD ACCOUNT: [id number] : 1965 AGE: 59 INTERVAL HISTORY: Patient has received 4 cycles of chemotherapy and doing well. Patient had lumpectomy and had complete response . ONCOLOGY HISTORY:?[facility] Hx? DIAGNOSIS: Neoplasm of unspecified behavior of breast [ICD10] D49.3 DATE OF DIAGNOSIS: 05/07/2024 STAGE/TNM: HER2 positive breast cancer TREATMENT HISTORY: Care?Plan Start?Date Cycle Day Intent Taxotere,?Carboplatin,?Trastuzumab?1 06/11/2024 1 21 Curative?(primary) Trastuzumab?6?mg/kg? To?Finish?the?Year 11/18/2024 1 21 Palliative HISTORY OF PRESENT ILLNESS: 59-year-old female left breast invasive ductal carcinoma. Patient has an ultrasound-guided biopsy which showed invasive cancer in all the biopsies and patient is referred here for further care. 02/14/2024 mammogram showed 06/19/2024 mammogram showed Interval growth of medial breast mass at site of biopsy-proven invasive ductal carcinoma. Surgical consult/surgical excision recommendedoval mass spiculated margins with breast biopsy marker 2.8 x 1.7 x 2.5 c 06/11/2024 for cycle of chemotherapy started with the [facility] OTHER MEDICAL HISTORY/CONDITIONS: LEFT BREAST CANCER MIGRAINE HEADACHES ANXIETY GASTRITIS OSTEOARTHRITIS RIGHT KNEE BREAST BIOPSY (03/2024) C SECTIONS X2 (1989,1994) CHOLECYSTECTOMY TOTAL KNEE REPLACEMENT RIGHT 2023 FAMILY HISTORY: Father: UNSURE TYPE OF CANCER PROSTATE OR PANCREAS Mother:?OVARIAN?CANCER?DX?90S Sibling: SISTER HAD OVARIAN CANCER DX 55 Children:?DENIES Cancer?History:?LEFT?BREAST?CANCER SOCIAL HISTORY: 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 Compazine - 5 mg 1 tab Daily 2. dexamethasone - 8 mg Daily for 3 days 3. ondansetron - 8 mg 8 mg Daily 4. Protonix - 20 mg 1 tab Daily?Palabra Meds? Medications Last Reconciled by Erum Coy MD on 11/18/2024 ALLERGIES: Penicillin V; FISH REVIEW OF SYSTEMS: A complete 14-point review of systems was performed and is negative except as noted in interval history. PHYSICAL EXAMINATION:?[facility] PE? VITAL SIGNS: Temperature?98.3, B/P?118/72, Oxygen?Saturation?99% Weight?210?lbs (Change?since?11/11/24:?0?lbs) PAIN: 0 - No pain ECOG Performance Status: 0 - Asymptomatic and fully active GENERAL APPEARANCE: Appears well, in no apparent distress, appropriately interactive. HEENT: Normocephalic, no temporal wasting, normal conjunctiva, no scleral icterus, normal hearing, lips without lesions, neck normal range of motion. CARDIOVASCULAR: Not assessed. PULMONARY: Normal respiratory effort, no respiratory distress or use of accessory muscles, speaking in full sentences, no tachypnea. EXTREMITIES: No pedal edema or cyanosis. SKIN: Normal skin appearance. NEUROLOGIC: Alert and oriented x4. PSHYCHIATRIC: Appropriate affect, mood normal, behavior normal, intact thought and speech. Breast examination reveals no palpable mass anymore LABORATORY DATA: I have personally reviewed and interpreted each of the patient?s relevant lab tests, abnormal findings are below: Date 09/23/24 10/19/24 ??WHITE?BLOOD?COUNT?(Thou/mm3) 4.8 5.6 ??RED?BLOOD?COUNT?(Miln/mm3) 3.27?L 3.25?L ??HEMOGLOBIN?(gm/dl) 10.8?L 10.8?L ??HEMATOCRIT?(%) 32.1?L 32.2?L ??PLATELET?COUNT?(Thou/mm3) 232 283 ??NEUTROPHILS?%,?AUTO?(%) 74 47 ??LYMPH?%,?AUTO?(%) 19 37 ??NEUTROPHILS,?AUTO?(Thou/mm3) 3.5 2.6 ??GLUCOSE,RANDOM?(mg/dL) ? 103 ??BLOOD?UREA?NITROGEN?(mg/dL) ? 16 ??CREATININE?(mg/dL) ? 0.80 ??SODIUM?(mmol/L) ? 145 ??POTASSIUM?(mmol/L) ? 4.3 ??CHLORIDE?(mmol/L) ? 109?H ??CrCl?(CandG)?(ml/min) ? 86.44 ??AST/SGOT?(Unit/L) ? 19 ??ALT/SGPT?(Unit/L) ? 11 ??ALKALINE?PHOSPHATASE?(Unit/L) ? 119?H ??BILIRUBIN,?TOTAL?(mg/dL) ? 0.3 ??PROTEIN?TOTAL?(gm/dl) ? 6.2 ??ALBUMIN,?SERUM?(gm/dl) ? 4.0 ??GLOBULIN?(gm/dl) ? 2.2?L ??ALBUMIN/GLOBULIN?RATIO ? 1.8 ??CALCIUM,?SERUM?(mg/dL) ? 9.0 ??CALCIUM?SERUM?(CORRECTED)?(mg/dL) ? 9.0 ??RETICULOCYTE?ABSOLUTE?AUTO?(Biln/L) 96.2?H ? ASSESSMENT/PLAN:?Justin Sparrow Assessment/Plan? Left breast cancer HER2 positive ER/UT negative Had a large lobulated mass in the left breast Completed 4 cycles of chemotherapy . had lumpectomy . Complete response Cont Herceptin . will complete for 1 year ORDERS: Order # Description [id number] Cardiac ECHO [id number] Infusion 1 Hour [id number] [facility] Hereditary Cancer Test [id number] CBC + Comprehensive Metabolic Panel [id number] Lab Appointment [id number] Follow Up Appointment [id number] Infusion 1 Hour [id number] CBC + Comprehensive Metabolic Panel [id number] Lab Appointment [id number] Follow Up Appointment [id number] Infusion 1 Hour [id number] CBC + Comprehensive Metabolic Panel [id number] Lab Appointment [id number] Follow Up Appointment [id number] Infusion 1 Hour [id number] CBC + Comprehensive Metabolic Panel [id number] Lab Appointment [id number] Follow Up Appointment [id number] Infusion 1 Hour [id number] CBC + Comprehensive Metabolic Panel [id number] Lab Appointment [id number] Follow Up Appointment [id number] Cardiac ECHO [id number] Infusion 1 Hour [id number] CBC + Comprehensive Metabolic Panel [id number] Lab Appointment [id number] Follow Up Appointment [id number] Infusion 1 Hour [id number] CBC + Comprehensive Metabolic Panel [id number] Lab Appointment [id number] Follow Up Appointment [id number] Infusion 1 Hour [id number] CBC + Comprehensive Metabolic Panel [id number] Lab Appointment [id number] Follow Up Appointment [id number] Infusion 1 Hour [id number] CBC + Comprehensive Metabolic Panel [id number] Lab Appointment [id number] Follow Up Appointment [id number] Infusion 1 Hour [id number] CBC + Comprehensive Metabolic Panel [id number] Lab Appointment [id number] Follow Up Appointment [id number] Cardiac ECHO [id number] Infusion 1 Hour [id number] CBC + Comprehensive Metabolic Panel [id number] Lab Appointment [id number] Follow Up Appointment [id number] Infusion 1 Hour [id number] CBC + Comprehensive Metabolic Panel [id number] Lab Appointment [id number] Follow Up Appointment [id number] Infusion 1 Hour [id number] CBC + Comprehensive Metabolic Panel [id number] Lab Appointment [id number] Follow Up Appointment RETURN TO CLINIC: I reviewed the diagnosis, prognosis, and recommended treatment/procedure options with the patient (and/or their legal customer service representative teller), including the potential benefits, risks, side effects and alternative therapies. We also discussed the option of no treatment and the possibility of clinical trial participation, if applicable. All questions were addressed, and they demonstrated understanding. They provided informed consent to proceed with the proposed plan of care. BILLING AND COMPLIANCE: I reviewed external records from providers outside my specialty as summarized above. I spent a total of 50 minutes on this patient?s care on the day of their visit excluding time spent related to any billed procedures. This time includes time spent with the patient as well as time spent documenting in the medical record, reviewing patients records and tests, obtaining history, placing orders, communicating with other healthcare professionals, counseling the patient, family or caregiver, and/or care coordination for the diagnoses above. Electronically Signed by: Gamaliel Sparrow MD T: 2:08 PM CC: Carroll?Fermin? PCP: Herman Mancilla Referring: Herman Mancilla This document was completed utilizing speech recognition software. Grammatical errors, random word insertions, pronoun errors, and incomplete sentences are an occasional consequence of this system due to software limitations, ambient noise, and hardware issues. Any formal questions or concerns about the content, text or information contained within the body of this dictation should be directly addressed to the provider for clarification.
[2024-11-23 12:30] LABS: Basophils # (Auto) 0.1 Thou/mm3 (0.0-0.2); Basophils % (Auto) 1 % (0-2.5); Eosinophils # (Auto) 0.2 Thou/mm3 (0.0-0.5); Eosinophils % (Auto) 3 % (0-10); Hematocrit 37.7 % (36.0-46.0); Hemoglobin 12.2 g/dL (12.0-16.0); Immature Granulocytes Auto 0.02 Thou/mm3 (0.00-0.00); Lymphocytes # (Auto) 2.1 Thou/mm3 (1.0-4.8); Lymphocytes % (Auto) 33 % (10-50); Mean Corpuscular HGB Conc 32.4 g/dl (31.0-37.0); Mean Corpuscular Hemoglobin 32.0 pg (25.0-35.0); Mean Corpuscular Volume 99 fL (80-100); Monocytes # (Auto) 0.6 Thou/mm3 (0.0-0.8); Monocytes % (Auto) 9 % (0-12); Neutrophils # (Auto) 3.3 Thou/mm3 (1.8-7.7); Neutrophils % (Auto) 53 % (37-80); Nucleated Red Blood Cell # 0.00 Thou/mm3 (0.00-0.00); Nucleated Red Blood Cell % 0 /100 WBC (0); Platelet Count 243 Thou/mm3 (140-440); RDW Standard Deviation 43.3 fL (36.4-46.3); Red Blood Count 3.81 Miln/mm3 (4.00-5.20); White Blood Count 6.2 Thou/mm3 (3.6-11.0)
[2024-11-23 12:54] LABS: Alanine Aminotransferase 10 U/L (10-49); Albumin, Serum 4.1 gm/dL (3.4-4.8); Albumin/Globulin Ratio 1.7 (1.2-2.2); Alkaline Phosphatase 126 U/L (46-116); Anion Gap 11 (7-16); Aspartate Amino Transferase 15 U/L (0-34); BUN/Creatinine Ratio 18 Ratio (12-20); Bilirubin,Total 0.3 mg/dL (0.3-1.2); Blood Urea Nitrogen 14 mg/dL (9-23); Calcium 9.6 mg/dL (8.3-10.6); Calcium (Corrected) 9.6 mg/dL (8.5-10.1); Carbon Dioxide 25.4 mMol/L (20.0-31.0); Chloride 107 mMol/L (98-107); Creatinine (Component) 0.8 mg/dL (0.6-1.3); Globulin 2.4 gm/dL (2.3-3.5); Glucose 111 mg/dL (74-106); Osmolality,Calculated 286 (275-295); Potassium 3.8 mMol/L (3.4-5.1); Sodium 143 mMol/L (136-145); Total Protein 6.5 gm/dL (5.7-8.2); eGFR > 60 See Note
[2024-11-23 12:56] LABS: Carcinoembryonic Antigen 1.7 ng/mL (0.0-5.0)
[2024-11-30 06:55] LABS: CA 27.29* 24 U/mL (LESS THAN 38)
== END 2024-12-06 23:59 | disposition home or self-care (01) ==
LOC: SCTC 08:52
PROVIDERS: Internal Medicine Hematology & Oncology; PCP Family Medicine; Referring Provider Family Medicine; Visit Provider Radiology Therapeutic Radiology
DX: Z51.0 Encounter for antineoplastic radiation therapy (principal); C50.812 Malignant neoplasm of overlapping sites of left female breast; Z17.1 Estrogen receptor negative status [ER-]; Z17.22 Progesterone receptor negative status; Z90.12 Acquired absence of left breast and nipple; Z17.31 Human epidermal growth factor receptor 2 positive status
CPT/HCPCS: 36591; 77014; 77290; 77334; 77470; 80053; 82378; 85025; 86300; 96413; 96415; 99212; 99213; A4216; J1642; J7030; J7050; Q5117; G0463

== ENCOUNTER 2025-01-05 09:30 | Outpatient (RCR) | payer MEDICAID, SELFPAY ==
[2024-12-14 16:13] LABS: Basophils # (Auto) 0.0 Thou/mm3 (0.0-0.2); Basophils % (Auto) 1 % (0-2.5); Eosinophils # (Auto) 0.2 Thou/mm3 (0.0-0.5); Eosinophils % (Auto) 3 % (0-10); Hematocrit 36.3 % (36.0-46.0); Hemoglobin 11.9 g/dL (12.0-16.0); Immature Granulocytes Auto 0.01 Thou/mm3 (0.00-0.00); Lymphocytes # (Auto) 2.0 Thou/mm3 (1.0-4.8); Lymphocytes % (Auto) 35 % (10-50); Mean Corpuscular HGB Conc 32.8 g/dl (31.0-37.0); Mean Corpuscular Hemoglobin 31.3 pg (25.0-35.0); Mean Corpuscular Volume 96 fL (80-100); Monocytes # (Auto) 0.5 Thou/mm3 (0.0-0.8); Monocytes % (Auto) 9 % (0-12); Neutrophils # (Auto) 3.0 Thou/mm3 (1.8-7.7); Neutrophils % (Auto) 52 % (37-80); Nucleated Red Blood Cell # 0.00 Thou/mm3 (0.00-0.00); Nucleated Red Blood Cell % 0 /100 WBC (0); Platelet Count 236 Thou/mm3 (140-440); RDW Standard Deviation 41.2 fL (36.4-46.3); Red Blood Count 3.80 Miln/mm3 (4.00-5.20); White Blood Count 5.7 Thou/mm3 (3.6-11.0)
[2024-12-14 16:40] LABS: Carcinoembryonic Antigen 1.4 ng/mL (0.0-5.0)
[2024-12-14 16:42] LABS: Alanine Aminotransferase 8 U/L (10-49); Albumin, Serum 3.9 gm/dL (3.4-4.8); Albumin/Globulin Ratio 1.6 (1.2-2.2); Alkaline Phosphatase 122 U/L (46-116); Anion Gap 12 (7-16); Aspartate Amino Transferase 18 U/L (0-34); BUN/Creatinine Ratio 14 Ratio (12-20); Bilirubin,Total 0.2 mg/dL (0.3-1.2); Blood Urea Nitrogen 13 mg/dL (9-23); Calcium 9.2 mg/dL (8.3-10.6); Calcium (Corrected) 9.3 mg/dL (8.5-10.1); Carbon Dioxide 25.0 mMol/L (20.0-31.0); Chloride 106 mMol/L (98-107); Creatinine (Component) 0.9 mg/dL (0.6-1.3); Globulin 2.5 gm/dL (2.3-3.5); Glucose 131 mg/dL (74-106); Osmolality,Calculated 287 (275-295); Potassium 3.4 mMol/L (3.4-5.1); Sodium 143 mMol/L (136-145); Total Protein 6.4 gm/dL (5.7-8.2); eGFR > 60 See Note
[2024-12-21 06:24] LABS: CA 27.29* 21 U/mL (LESS THAN 38)
[2025-01-04 11:00] LABS: Basophils # (Auto) 0.1 Thou/mm3 (0.0-0.2); Basophils % (Auto) 1 % (0-2.5); Eosinophils # (Auto) 0.1 Thou/mm3 (0.0-0.5); Eosinophils % (Auto) 3 % (0-10); Hematocrit 37.4 % (36.0-46.0); Hemoglobin 12.5 g/dL (12.0-16.0); Immature Granulocytes Auto 0.01 Thou/mm3 (0.00-0.00); Lymphocytes # (Auto) 1.5 Thou/mm3 (1.0-4.8); Lymphocytes % (Auto) 27 % (10-50); Mean Corpuscular HGB Conc 33.4 g/dl (31.0-37.0); Mean Corpuscular Hemoglobin 31.1 pg (25.0-35.0); Mean Corpuscular Volume 93 fL (80-100); Monocytes # (Auto) 0.6 Thou/mm3 (0.0-0.8); Monocytes % (Auto) 11 % (0-12); Neutrophils # (Auto) 3.3 Thou/mm3 (1.8-7.7); Neutrophils % (Auto) 59 % (37-80); Nucleated Red Blood Cell # 0.00 Thou/mm3 (0.00-0.00); Nucleated Red Blood Cell % 0 /100 WBC (0); Platelet Count 236 Thou/mm3 (140-440); RDW Standard Deviation 41.6 fL (36.4-46.3); Red Blood Count 4.02 Miln/mm3 (4.00-5.20); White Blood Count 5.6 Thou/mm3 (3.6-11.0)
[2025-01-04 11:18] LABS: Alanine Aminotransferase 11 U/L (10-49); Albumin, Serum 4.4 gm/dL (3.4-4.8); Albumin/Globulin Ratio 1.5 (1.2-2.2); Alkaline Phosphatase 123 U/L (46-116); Anion Gap 8 (7-16); Aspartate Amino Transferase 20 U/L (0-34); BUN/Creatinine Ratio 20 Ratio (12-20); Bilirubin,Total 0.5 mg/dL (0.3-1.2); Blood Urea Nitrogen 16 mg/dL (9-23); Calcium 9.6 mg/dL (8.3-10.6); Calcium (Corrected) 9.6 mg/dL (8.5-10.1); Carbon Dioxide 24.6 mMol/L (20.0-31.0); Chloride 108 mMol/L (98-107); Creatinine (Component) 0.8 mg/dL (0.6-1.3); Globulin 2.9 gm/dL (2.3-3.5); Glucose 98 mg/dL (74-106); Osmolality,Calculated 282 (275-295); Potassium 3.8 mMol/L (3.4-5.1); Sodium 141 mMol/L (136-145); Total Protein 7.3 gm/dL (5.7-8.2); eGFR > 60 See Note
[2025-01-04 11:21] LABS: Carcinoembryonic Antigen 1.5 ng/mL (0.0-5.0)
[2025-01-07 06:30] LABS: CA 27.29* 21 U/mL (LESS THAN 38)
== END 2025-01-05 23:59 | disposition home or self-care (01) ==
LOC: SCTC 09:30
PROVIDERS: Internal Medicine Hematology & Oncology; PCP Family Medicine; Referring Provider Family Medicine; Visit Provider Radiology Therapeutic Radiology
DX: Z51.0 Encounter for antineoplastic radiation therapy (principal); Z51.11 Encounter for antineoplastic chemotherapy; C50.812 Malignant neoplasm of overlapping sites of left female breast; Z17.1 Estrogen receptor negative status [ER-]; Z17.22 Progesterone receptor negative status; Z17.31 Human epidermal growth factor receptor 2 positive status; Z90.12 Acquired absence of left breast and nipple
CPT/HCPCS: 36591; 77280; 77295; 77300; 77334; 77336; 77412; 77417; 80053; 82378; 85025; 86300; 96413; A4216; J1642; J7040; J7050; Q5117

== ENCOUNTER → 2025-01-14 | Outpatient (CLI) | payer MEDICAID, SELFPAY ==
--- NOTE | 2025-01-14 10:30 | ECHO_ITS ---
Transthoracic Echo Report Ht (in): 65 Wt (lb): 206 Exam Location: Echo Lab Status: Preadmit Marine Animal Trainer: Kari Ellis Indications: Procedure Performed: BP: 122 / 71 HR: 91 MEASUREMENTS (Male / Female) Normal Values 2D ECHO LV Diastolic Diameter PLAX 4.4 cm 4.2 - 5.9 / 3.9 - 5.3 cm LV Systolic Diameter PLAX 3.2 cm IVS Diastolic Thickness 0.8 cm 0.6 - 1.0 / 0.6 - 0.9 cm LVPW Diastolic Thickness 1.1 cm 0.6 - 1.0 / 0.6 - 0.9 cm LV Relative Wall Thickness 0.4 LVOT Diameter 1.8 cm LA Volume Index 26.4 cm?/m? 16 - 28 cm?/m? Ascending Aorta Diameter 2.9 cm M-MODE AV Cusp Separation MM 1.6 cm DOPPLER AV Peak Velocity 117.0 cm/s AV Peak Gradient 5.5 mmHg AV Mean Gradient 3.0 mmHg AV Velocity Time Integral 23.2 cm LVOT Peak Velocity 87.1 cm/s LVOT Peak Gradient 3.0 mmHg LVOT Velocity Time Integral 17.7 cm LVOT Cardiac Index 1944.5 cm?/min?m? AV Area Cont Eq vti 1.9 cm? AV Area Cont Eq pk 1.9 cm? MV Area PHT 5.8 cm? Mitral E Point Velocity 42.2 cm/s Mitral A Point Velocity 92.9 cm/s Mitral E to A Ratio 0.5 LV E' Lateral Velocity 8.7 cm/s Mitral E to LV E' Lateral Ratio 4.9 LV E' Septal Velocity 6.7 cm/s Mitral E to LV E' Septal Ratio 6.3 TR Peak Velocity 189.0 cm/s TR Peak Gradient 14.3 mmHg PV Peak Velocity 85.5 cm/s PV Peak Gradient 2.9 mmHg FINDINGS Left Ventricle Normal left ventricular size, wall thickness, systolic function with no obvious regional wall motion abnormalities.There is grade I diastolic dysfunction of the left ventricle (impaired relaxation pattern). The ejection fraction is visually estimated at 65%. Right Ventricle The right ventricle is normal in size and systolic function. Left Atrium The left atrium is normal by two-dimensional, color flow and Doppler imaging with no structural abnormalities, no thrombus formation present. Right Atrium The right atrium is normal by two-dimensional imaging, color flow and Doppler imaging with no structural abnormalities, no thrombus formation present. Atrial Septum The interatrial septum appears normal with no evidence of a shunt. Aorta The aorta is normal by two-dimensional, color flow and Doppler interrogation. Mitral Valve The mitral valve is normal by two-dimensional, color flow and Doppler interrogation. There is no significant mitral valve regurgitation, stenosis or prolapse. Aortic Valve The aortic valve is trileaflet and normal by two-dimensional, color flow and Doppler interrogation. There is no significant aortic valve regurgitation. Tricuspid Valve The tricuspid valve is normal by two-dimensional, color flow and Doppler interrogation. There is trace tricuspid valve regurgitation. Pulmonic Valve The pulmonic valve is not well visualized. There is no significant pulmonic valve regurgitation. Vessels The pulmonary artery appears normal. The inferior vena cava pulmonary and hepatic veins appear normal. Pericardium The pericardium is normal by two-dimensional imaging. There is no significant pericardial effusion. CONCLUSIONS Indication: Neoplasm of unspecfiied behavior of breast Normal left ventricular size and function. Approximate ejection fraction is 60- 65%. Grade I diastolic dysfunction Normal right ventricular size and function. Normal RVSP. Trace tricuspid regurgitation noted. No pericardial effusion. No changes Compared to prior study of 09/11/24 Wily Painting (Electronically Signed) Final Date: 15 January 2025 01:29
== END | disposition home or self-care (01) ==
LOC: SDIM 09:15
PROVIDERS: PCP Internal Medicine; Referring Provider Internal Medicine Hematology & Oncology; Visit Provider Internal Medicine Hematology & Oncology
DX: I07.1 Rheumatic tricuspid insufficiency (principal)
CPT/HCPCS: 93306

== ENCOUNTER 2025-02-02 09:19 | Outpatient (RCR) | payer MEDICAID, SELFPAY ==
[2025-01-25 09:05] LABS: Basophils # (Auto) 0.0 Thou/mm3 (0.0-0.2); Basophils % (Auto) 1 % (0-2.5); Eosinophils # (Auto) 0.1 Thou/mm3 (0.0-0.5); Eosinophils % (Auto) 3 % (0-10); Hematocrit 36.6 % (36.0-46.0); Hemoglobin 12.3 g/dL (12.0-16.0); Immature Granulocytes Auto 0.01 Thou/mm3 (0.00-0.00); Lymphocytes # (Auto) 1.3 Thou/mm3 (1.0-4.8); Lymphocytes % (Auto) 28 % (10-50); Mean Corpuscular HGB Conc 33.6 g/dl (31.0-37.0); Mean Corpuscular Hemoglobin 31.0 pg (25.0-35.0); Mean Corpuscular Volume 92 fL (80-100); Monocytes # (Auto) 0.4 Thou/mm3 (0.0-0.8); Monocytes % (Auto) 9 % (0-12); Neutrophils # (Auto) 2.8 Thou/mm3 (1.8-7.7); Neutrophils % (Auto) 59 % (37-80); Nucleated Red Blood Cell # 0.00 Thou/mm3 (0.00-0.00); Nucleated Red Blood Cell % 0 /100 WBC (0); Platelet Count 227 Thou/mm3 (140-440); RDW Standard Deviation 41.9 fL (36.4-46.3); Red Blood Count 3.97 Miln/mm3 (4.00-5.20); White Blood Count 4.7 Thou/mm3 (3.6-11.0)
[2025-01-25 09:26] LABS: Alanine Aminotransferase 12 U/L (10-49); Albumin, Serum 3.8 gm/dL (3.4-4.8); Albumin/Globulin Ratio 1.5 (1.2-2.2); Alkaline Phosphatase 122 U/L (46-116); Anion Gap 11 (7-16); Aspartate Amino Transferase 19 U/L (0-34); BUN/Creatinine Ratio 16 Ratio (12-20); Bilirubin,Total 0.3 mg/dL (0.3-1.2); Blood Urea Nitrogen 14 mg/dL (9-23); Calcium 8.9 mg/dL (8.3-10.6); Calcium (Corrected) 9.1 mg/dL (8.5-10.1); Carbon Dioxide 23.7 mMol/L (20.0-31.0); Chloride 108 mMol/L (98-107); Creatinine (Component) 0.9 mg/dL (0.6-1.3); Globulin 2.6 gm/dL (2.3-3.5); Glucose 144 mg/dL (74-106); Osmolality,Calculated 288 (275-295); Potassium 3.6 mMol/L (3.4-5.1); Sodium 143 mMol/L (136-145); Total Protein 6.4 gm/dL (5.7-8.2); eGFR > 60 See Note
[2025-01-25 09:27] LABS: Carcinoembryonic Antigen 1.5 ng/mL (0.0-5.0)
[2025-01-28 06:34] LABS: CA 27.29* 20 U/mL (LESS THAN 38)
== END 2025-02-05 23:59 | disposition home or self-care (01) ==
LOC: SCTC 09:19
PROVIDERS: Internal Medicine Hematology & Oncology; Referring Provider Family Medicine; Visit Provider Radiology Therapeutic Radiology
DX: Z51.0 Encounter for antineoplastic radiation therapy (principal); Z51.11 Encounter for antineoplastic chemotherapy; C50.812 Malignant neoplasm of overlapping sites of left female breast; Z17.1 Estrogen receptor negative status [ER-]; Z17.22 Progesterone receptor negative status; Z17.31 Human epidermal growth factor receptor 2 positive status; L59.8 Other specified disorders of the skin and subcutaneous tissue related to radiation; Y84.2 Radiological procedure and radiotherapy as the cause of abnormal reaction of the patient, or of later complication, without mention of misadventure at the time of the procedure
CPT/HCPCS: 36591; 77290; 77300; 77332; 77336; 77412; 77417; 80053; 82378; 85025; 86300; 96413; 99212; A4216; J1642; J7050; Q5117; G0463

== ENCOUNTER → 2025-02-15 | Outpatient (CLI) | payer MEDICAID, SELFPAY ==
--- NOTE | 2025-02-15 15:00 | XR_ITS ---
Examination: Screening digital mammography, bilateral Computer aided detection 3-D breast Tomosynthesis, bilateral Date and time of exam: February 15, 2025, 1459 hours, compared to mammograms dating to September 28, 2022 Indication: Screening Technique: Nonmagnified MLO, CC views of the breasts to been obtained, reconstructed from 3-D Tomosynthesis images. R2 computer aided detection program utilized for evaluation of suspicious masses and/or abnormal calcifications. 3-D Tomosynthesis images obtained. Findings: The breasts are heterogeneously dense, which may obscure small masses Breast biopsy markers bilaterally Benign calcifications. Scar formation in both breasts No interval suspicious mass Impression: BI-RADS category II: Benign Findings. Recommend 1 year follow-up mammogram.
== END | disposition home or self-care (01) ==
DX: Z12.31 Encounter for screening mammogram for malignant neoplasm of breast (principal); R92.323 Mammographic fibroglandular density, bilateral breasts; R92.1 Mammographic calcification found on diagnostic imaging of breast
CPT/HCPCS: 77063; 77067

== ENCOUNTER 2025-03-01 14:14 | Outpatient (RCR) | payer MEDICAID, SELFPAY ==
[2025-02-15 14:44] LABS: Basophils # (Auto) 0.1 Thou/mm3 (0.0-0.2); Basophils % (Auto) 1 % (0-2.5); Eosinophils # (Auto) 0.1 Thou/mm3 (0.0-0.5); Eosinophils % (Auto) 2 % (0-10); Hematocrit 37.5 % (36.0-46.0); Hemoglobin 12.7 g/dL (12.0-16.0); Immature Granulocytes Auto 0.02 Thou/mm3 (0.00-0.00); Lymphocytes # (Auto) 1.5 Thou/mm3 (1.0-4.8); Lymphocytes % (Auto) 23 % (10-50); Mean Corpuscular HGB Conc 33.9 g/dl (31.0-37.0); Mean Corpuscular Hemoglobin 30.8 pg (25.0-35.0); Mean Corpuscular Volume 91 fL (80-100); Monocytes # (Auto) 0.6 Thou/mm3 (0.0-0.8); Monocytes % (Auto) 10 % (0-12); Neutrophils # (Auto) 4.2 Thou/mm3 (1.8-7.7); Neutrophils % (Auto) 65 % (37-80); Nucleated Red Blood Cell # 0.00 Thou/mm3 (0.00-0.00); Nucleated Red Blood Cell % 0 /100 WBC (0); Platelet Count 249 Thou/mm3 (140-440); RDW Standard Deviation 42.5 fL (36.4-46.3); Red Blood Count 4.12 Miln/mm3 (4.00-5.20); White Blood Count 6.4 Thou/mm3 (3.6-11.0)
[2025-02-15 15:00] LABS: Alanine Aminotransferase 14 U/L (10-49); Albumin, Serum 4.4 gm/dL (3.4-4.8); Albumin/Globulin Ratio 2.0 (1.2-2.2); Alkaline Phosphatase 125 U/L (46-116); Anion Gap 7 (7-16); Aspartate Amino Transferase 20 U/L (0-34); BUN/Creatinine Ratio 19 Ratio (12-20); Bilirubin,Total 0.2 mg/dL (0.3-1.2); Blood Urea Nitrogen 17 mg/dL (9-23); Calcium 9.0 mg/dL (8.3-10.6); Calcium (Corrected) 9.0 mg/dL (8.5-10.1); Carbon Dioxide 25.6 mMol/L (20.0-31.0); Chloride 108 mMol/L (98-107); Creatinine (Component) 0.9 mg/dL (0.6-1.3); Globulin 2.2 gm/dL (2.3-3.5); Glucose 102 mg/dL (74-106); Osmolality,Calculated 282 (275-295); Potassium 3.9 mMol/L (3.4-5.1); Sodium 141 mMol/L (136-145); Total Protein 6.6 gm/dL (5.7-8.2); eGFR > 60 See Note
--- NOTE | 2025-03-06 23:15 | CTCFLWUP_ITS ---
Patient: JIHAN SOOD : 1965 Page 4 of 6 FOLLOW UP NOTE DATE OF SERVICE: 03/01/2025 NAME: JIHAN SOOD ACCOUNT: [id number] : 1965 AGE: 59 INTERVAL HISTORY: Patient has been on maintenance Herceptin and doing well. Echocardiogram every 3 months has been obtained and is stable. ONCOLOGY HISTORY: DIAGNOSIS: Neoplasm of unspecified behavior of breast [ICD10] D49.3; Malignant neoplasm of upper-inner quadrant of left female breast [ICD10] C50.212 DATE OF DIAGNOSIS: 05/07/2024 invasive ductal carcinoma ER/LA negative HER2 positive Ki-67 90% STAGE/TNM: T3 NX MX TREATMENT HISTORY: Care?Plan Start?Date Cycle Day Intent Taxotere,?Carboplatin,?Trastuzumab?1 06/11/2024 1 21 Curative?(primary) Trastuzumab?6?mg/kg? 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 miconazole nitrate - 2 % 2 gm twice dialy 2. Protonix - 20 mg 1 tab Daily 3. Silvadene - 1 % 1 Application three times a day 4. traZODone - 50 mg 1 tab Daily Medications Last Reconciled by Erum Coy MD on 03/01/2025 ALLERGIES: Penicillin V; FISH REVIEW OF SYSTEMS: A complete 14-point review of systems was performed and is negative except as noted in interval history. PHYSICAL EXAMINATION: VITAL SIGNS: Temperature?97.4, B/P?114/69, Oxygen?Saturation?95% Weight?209?lbs (Change?since?02/17/25:?-2.8?lbs) PAIN: 0 - No pain ECOG Performance Status: 0 - Asymptomatic and fully active GENERAL APPEARANCE: Appears well, in no apparent distress, appropriately interactive. HEENT: Normocephalic, no temporal wasting, normal conjunctiva, no scleral icterus, normal hearing, lips without lesions, neck normal range of motion. CARDIOVASCULAR: Not assessed. PULMONARY: Normal respiratory effort, no respiratory distress or use of accessory muscles, speaking in full sentences, no tachypnea. EXTREMITIES: No pedal edema or cyanosis. SKIN: Normal skin appearance. NEUROLOGIC: Alert and oriented x4. PSHYCHIATRIC: Appropriate affect, mood normal, behavior normal, intact thought and speech. LABORATORY DATA: I have personally reviewed and interpreted each of the patient?s relevant lab tests, abnormal findings are below: Date 01/25/25 02/15/25 ??WHITE?BLOOD?COUNT?(Thou/mm3) 4.7 6.4 ??RED?BLOOD?COUNT?(Miln/mm3) 3.97?L 4.12 ??HEMOGLOBIN?(gm/dl) 12.3 12.7 ??HEMATOCRIT?(%) 36.6 37.5 ??PLATELET?COUNT?(Thou/mm3) 227 249 ??NEUTROPHILS?%,?AUTO?(%) 59 65 ??LYMPH?%,?AUTO?(%) 28 23 ??NEUTROPHILS,?AUTO?(Thou/mm3) 2.8 4.2 ??GLUCOSE,RANDOM?(mg/dL) 144?H 102 ??BLOOD?UREA?NITROGEN?(mg/dL) 14 17 ??CREATININE?(mg/dL) 0.90 0.90 ??SODIUM?(mmol/L) 143 141 ??POTASSIUM?(mmol/L) 3.6 3.9 ??CHLORIDE?(mmol/L) 108?H 108?H ??CrCl?(CandG)?(ml/min) 76.00 76.68 ??AST/SGOT?(Unit/L) 19 20 ??ALT/SGPT?(Unit/L) 12 14 ??ALKALINE?PHOSPHATASE?(Unit/L) 122?H 125?H ??BILIRUBIN,?TOTAL?(mg/dL) 0.3 0.2?L ??PROTEIN?TOTAL?(gm/dl) 6.4 6.6 ??ALBUMIN,?SERUM?(gm/dl) 3.8 4.4 ??GLOBULIN?(gm/dl) 2.6 2.2?L ??ALBUMIN/GLOBULIN?RATIO 1.5 2.0 ??CALCIUM,?SERUM?(mg/dL) 8.9 9.0 ??CALCIUM?SERUM?(CORRECTED)?(mg/dL) 9.1 9.0 ASSESSMENT/PLAN: Invasive ductal carcinoma ER/LA negative HER2 positive Status post chemotherapy with TCH followed by mastectomy left breast Followed by radiation On maintenance Herceptin tolerating well Continue Herceptin for total 1 year Advised to take calcium and vitamin D3 daily Echo in 3 months RTC in 2 to 3 months ORDERS: Order # Description [id number] CBC + Comprehensive Metabolic Panel [id number] Lab Appointment [id number] Follow Up Appointment [id number] Cardiac ECHO [id number] Infusion 1 Hour [id number] CBC + Comprehensive Metabolic Panel [id number] Lab Appointment [id number] Follow Up Appointment [id number] Infusion 1 Hour [id number] CBC + Comprehensive Metabolic Panel [id number] Lab Appointment [id number] Follow Up Appointment [id number] Infusion 1 Hour [id number] CBC + Comprehensive Metabolic Panel [id number] Lab Appointment [id number] Follow Up Appointment [id number] Infusion 1 Hour [id number] CBC + Comprehensive Metabolic Panel [id number] Lab Appointment [id number] Follow Up Appointment [id number] Infusion 1 Hour [id number] CBC + Comprehensive Metabolic Panel [id number] Lab Appointment [id number] Follow Up Appointment [id number] Cardiac ECHO [id number] Infusion 1 Hour [id number] CBC + Comprehensive Metabolic Panel [id number] Lab Appointment [id number] Follow Up Appointment [id number] Infusion 1 Hour [id number] CBC + Comprehensive Metabolic Panel [id number] Lab Appointment [id number] Follow Up Appointment [id number] Infusion 1 Hour [id number] CBC + Comprehensive Metabolic Panel [id number] Lab Appointment [id number] Follow Up Appointment RETURN TO CLINIC: I reviewed the diagnosis, prognosis, and recommended treatment/procedure options with the patient (and/or their legal support representative), including the potential benefits, risks, side effects and alternative therapies. We also discussed the option of no treatment and the possibility of clinical trial participation, if applicable. All questions were addressed, and they demonstrated understanding. They provided informed consent to proceed with the proposed plan of care. BILLING AND COMPLIANCE: I reviewed external records from providers outside my specialty as summarized above. I spent a total of 50 minutes on this patient?s care on the day of their visit excluding time spent related to any billed procedures. This time includes time spent with the patient as well as time spent documenting in the medical record, reviewing patients records and tests, obtaining history, placing orders, communicating with other healthcare professionals, counseling the patient, family or caregiver, and/or care coordination for the diagnoses above. Electronically Signed by: {Object.Sanct_ID*PnP.NameFL@M}, {Object.Sanct_ID*PnP.Suffix@U} D: {Object.Sanct_Date} T: {Object.Sanct_Time} CC: Carroll?Fermin,? PCP: Wallace Lema Referring: Wallace Lema This document was completed utilizing speech recognition software. Grammatical errors, random word insertions, pronoun errors, and incomplete sentences are an occasional consequence of this system due to software limitations, ambient noise, and hardware issues. Any formal questions or concerns about the content, text or information contained within the body of this dictation should be directly addressed to the provider for clarification.
== END 2025-03-07 23:59 | disposition home or self-care (01) ==
LOC: SCTC 14:14
PROVIDERS: PCP Internal Medicine; Referring Provider Internal Medicine; Visit Provider Internal Medicine Hematology & Oncology
DX: Z51.11 Encounter for antineoplastic chemotherapy (principal); C50.812 Malignant neoplasm of overlapping sites of left female breast; Z17.1 Estrogen receptor negative status [ER-]; Z17.22 Progesterone receptor negative status; Z17.31 Human epidermal growth factor receptor 2 positive status; Z90.12 Acquired absence of left breast and nipple
CPT/HCPCS: 36591; 80053; 85025; 96413; 99212; A4216; J1642; J7050; Q5117; G0463

== ENCOUNTER → 2025-03-02 | Outpatient (CLI) | payer MEDICAID, SELFPAY | END | disposition home or self-care (01) | LOC: COPL 10:46 | DX: Z01.89 Encounter for other specified special examinations (principal) | CPT/HCPCS: 36415 ==

== ENCOUNTER 2025-03-31 07:22 | Outpatient (RCR) | payer MEDICAID, SELFPAY ==
[2025-03-09 16:29] LABS: Basophils # (Auto) 0.1 Thou/mm3 (0.0-0.2); Basophils % (Auto) 1 % (0-2.5); Eosinophils # (Auto) 0.1 Thou/mm3 (0.0-0.5); Eosinophils % (Auto) 2 % (0-10); Hematocrit 35.3 % (36.0-46.0); Hemoglobin 11.9 g/dL (12.0-16.0); Immature Granulocytes Auto 0.02 Thou/mm3 (0.00-0.00); Lymphocytes # (Auto) 1.9 Thou/mm3 (1.0-4.8); Lymphocytes % (Auto) 27 % (10-50); Mean Corpuscular HGB Conc 33.7 g/dl (31.0-37.0); Mean Corpuscular Hemoglobin 30.7 pg (25.0-35.0); Mean Corpuscular Volume 91 fL (80-100); Monocytes # (Auto) 0.7 Thou/mm3 (0.0-0.8); Monocytes % (Auto) 10 % (0-12); Neutrophils # (Auto) 4.1 Thou/mm3 (1.8-7.7); Neutrophils % (Auto) 60 % (37-80); Nucleated Red Blood Cell # 0.00 Thou/mm3 (0.00-0.00); Nucleated Red Blood Cell % 0 /100 WBC (0); Platelet Count 266 Thou/mm3 (140-440); RDW Standard Deviation 43.0 fL (36.4-46.3); Red Blood Count 3.88 Miln/mm3 (4.00-5.20); White Blood Count 6.8 Thou/mm3 (3.6-11.0)
[2025-03-09 16:48] LABS: Alanine Aminotransferase 14 U/L (10-49); Albumin, Serum 4.3 gm/dL (3.4-4.8); Albumin/Globulin Ratio 1.6 (1.2-2.2); Alkaline Phosphatase 129 U/L (46-116); Anion Gap 10 (7-16); Aspartate Amino Transferase 22 U/L (0-34); BUN/Creatinine Ratio 18 Ratio (12-20); Bilirubin,Total 0.3 mg/dL (0.3-1.2); Blood Urea Nitrogen 16 mg/dL (9-23); Calcium 8.7 mg/dL (8.3-10.6); Calcium (Corrected) 8.7 mg/dL (8.5-10.1); Carbon Dioxide 25.4 mMol/L (20.0-31.0); Chloride 108 mMol/L (98-107); Creatinine (Component) 0.9 mg/dL (0.6-1.3); Globulin 2.7 gm/dL (2.3-3.5); Glucose 121 mg/dL (74-106); Osmolality,Calculated 287 (275-295); Potassium 3.6 mMol/L (3.4-5.1); Sodium 143 mMol/L (136-145); Total Protein 7.0 gm/dL (5.7-8.2); eGFR > 60 See Note
[2025-03-30 13:36] LABS: Basophils # (Auto) 0.1 Thou/mm3 (0.0-0.2); Basophils % (Auto) 1 % (0-2.5); Eosinophils # (Auto) 0.2 Thou/mm3 (0.0-0.5); Eosinophils % (Auto) 3 % (0-10); Hematocrit 35.4 % (36.0-46.0); Hemoglobin 11.8 g/dL (12.0-16.0); Immature Granulocytes Auto 0.01 Thou/mm3 (0.00-0.00); Lymphocytes # (Auto) 1.4 Thou/mm3 (1.0-4.8); Lymphocytes % (Auto) 22 % (10-50); Mean Corpuscular HGB Conc 33.3 g/dl (31.0-37.0); Mean Corpuscular Hemoglobin 30.6 pg (25.0-35.0); Mean Corpuscular Volume 92 fL (80-100); Monocytes # (Auto) 0.5 Thou/mm3 (0.0-0.8); Monocytes % (Auto) 8 % (0-12); Neutrophils # (Auto) 4.3 Thou/mm3 (1.8-7.7); Neutrophils % (Auto) 66 % (37-80); Nucleated Red Blood Cell # 0.00 Thou/mm3 (0.00-0.00); Nucleated Red Blood Cell % 0 /100 WBC (0); Platelet Count 274 Thou/mm3 (140-440); RDW Standard Deviation 42.2 fL (36.4-46.3); Red Blood Count 3.86 Miln/mm3 (4.00-5.20); White Blood Count 6.4 Thou/mm3 (3.6-11.0)
[2025-03-30 13:54] LABS: Alanine Aminotransferase 16 U/L (10-49); Albumin, Serum 4.2 gm/dL (3.4-4.8); Albumin/Globulin Ratio 1.6 (1.2-2.2); Alkaline Phosphatase 122 U/L (46-116); Anion Gap 12 (7-16); Aspartate Amino Transferase 22 U/L (0-34); BUN/Creatinine Ratio 16 Ratio (12-20); Bilirubin,Total 0.2 mg/dL (0.3-1.2); Blood Urea Nitrogen 14 mg/dL (9-23); Calcium 8.9 mg/dL (8.3-10.6); Calcium (Corrected) 8.9 mg/dL (8.5-10.1); Carbon Dioxide 25.2 mMol/L (20.0-31.0); Chloride 108 mMol/L (98-107); Creatinine (Component) 0.9 mg/dL (0.6-1.3); Globulin 2.7 gm/dL (2.3-3.5); Glucose 131 mg/dL (74-106); Osmolality,Calculated 291 (275-295); Potassium 3.8 mMol/L (3.4-5.1); Sodium 145 mMol/L (136-145); Total Protein 6.9 gm/dL (5.7-8.2); eGFR > 60 See Note
== END 2025-04-07 23:59 | disposition home or self-care (01) ==
LOC: SCTC 07:22
PROVIDERS: Visit Provider Internal Medicine Hematology & Oncology
DX: Z51.11 Encounter for antineoplastic chemotherapy (principal); C50.812 Malignant neoplasm of overlapping sites of left female breast; Z17.1 Estrogen receptor negative status [ER-]; Z17.22 Progesterone receptor negative status; Z17.31 Human epidermal growth factor receptor 2 positive status; Z90.12 Acquired absence of left breast and nipple
CPT/HCPCS: 36591; 80053; 85025; 96413; A4216; J1642; J7050; Q5117